=== PATIENT | male | born 1975 ===

== ENCOUNTER 2016-08-03 17:01 | Inpatient (IN) | payer MEDICAID ==
[~2016-08-03 17:01] MED LIST: Etomidate 20 mg/10ml Inj IV ONE
[2016-08-03] MEDS ORDERED: Rocuronium 10 mg/ml (5 ml) ONE ×2 (17:02→17:07)
--- NOTE | 2016-08-03 17:23 | ED PDOC ---
HPI: General Adult Time Seen by Provider: 08/03/16 17:15 Chief Complaint (Nursing): Seizure Chief Complaint (Provider): Unresponsive History Per: EMS History/Exam Limitations: clinical condition Onset/Duration Of Symptoms: Days (Today) Additional Complaint(s): EMS was called for unresponsive pt. Pt. was found to be combative and EMS gave ketamine IM. Pt. then transported to the ED. Pt. possibly with history of seizure and could of had a seizure. Unclear. Limited H and P as pt. not communicating and no family/friends at bedside. In ED, pt. found to be unresponsive with no gag. Pt. muscles mild contracted. Past Medical History Reviewed: Historical Data (history from previous visits), Nursing Documentation , Vital Signs Vital Signs: Last Vital Signs Temp 98.4 F 08/03/16 17:19 Pulse 80 08/03/16 18:12 Resp 14 08/03/16 18:12 BP 117/48 L 08/03/16 18:12 Pulse Ox 93 L 08/03/16 18:12 - Medical History PMH: HTN (not on meds), Chronic Kidney Disease Denies: Diabetes, Hepatitis, HIV, Seizures, Sexually Transmitted Disease - Family History Family History: States: Unknown Family Hx - Social History Alcohol: Other - Immunization History Hx Tetanus Toxoid Vaccination: No Hx Influenza Vaccination: Yes Hx Pneumococcal Vaccination: No - Home Medications Home Medications: Ambulatory Orders Medication Instructions Recorded No Known Home Med 06/11/16 - Allergies Allergies/Adverse Reactions: Allergies Allergy/AdvReac Type Severity Reaction Status Date / Time No Known Allergies Allergy Verified 08/03/16 17:16 Review of Systems Review Of Systems: ROS cannot be obtained secondary to pt's inabilty to answer questions. Physical Exam - Reviewed Nursing Documentation Reviewed: Yes Vital Signs Reviewed: Yes - Physical Exam Appears: Positive for: In Acute Distress Head Exam: Positive for: NORMOCEPHALIC Skin: Positive for: Normal Color, Warm, Diaphoresis (mild) Eye Exam: Positive for: PERRL (pinpoint b/l), Other (abrasion to nose; no septal hematoma; no gag present) Neck: Positive for: Trachea Midline Cardiovascular/Chest: Positive for: Tachycardia (sss) Respiratory: Positive for: Decreased Breath Sounds Gastrointestinal/Abdominal: Positive for: Soft. Negative for: Tenderness Back: Negative for: L CVA Tenderness, R CVA Tenderness Extremity: Negative for: Tenderness, Pedal Edema Neurologic/Psych: Positive for: Other (not responsive to commands; extremities muscles slowly relaxing during evaluation) - Laboratory Results Result Diagrams: 08/03/16 17:50 Interpretation Of Abn Labs: 13 wbc - ECG ECG: Positive for: Interpreted By Me, Viewed By Me ECG Rhythm: Positive for: Normal QRS, Normal ST Segment, Sinus Rhythm O2 Sat by Pulse Oximetry: 94 - Radiology X-Ray: Interpreted by Me, Viewed By Me X-Ray Interpretation: No Acute Disease, Other (tube 3cm above art) - CT Scan/US head ct Other Rad Studies (CT/US): Read By Radiologist Other Rad Interpretation: no acute - Progress ED Course And Treament: 1915: Stable. Intubated. Waking up more on vent, more meds given for sedation. Not septic. Likely seizure vs. drug use. Hx of drugs and etoh per previous visits. 1941: Stable. Spoke with Dr. Mendoza, will admit. Spoke with Aleexi, will admit. ICU. - Critical Care Total Time (In Min): 30 Documented Critical Care: Time excludes all time spent performint seperately billable procedures Procedures - Intubation Time of Intubation: 17:39 Intubation Method: orotracheal Tube Size (cm): 7.5 Breath Sounds after Intubation: equal Intubation Complications: no complications Post Intubation Xray: Yes (intact) Progress/Xray Impression: in place; glide scope used Disposition - Clinical Impression Clinical Impression: Unresponsive state - Patient ED Disposition Is Patient to be Admitted: Yes - Disposition Disposition Time: 19:43 Condition: SERIOUS - Pt Status Changed To: Hospital Disposition Of: Inpatient - Admit Certification Admit to Inpatient:: After my assessment, the patient will require hospitalization for at least two midnights. This is because of the severity of symptoms shown, intensity of services needed, and/or the medical risk in this patient being treated as an outpatient. - POA Present On Arrival: Falls Or Trauma
[2016-08-03 17:32] LABS: ABG ALLEN TEST YES; ABG MECHANICAL RATE 12; ARTERIAL BLOOD GAS HCO3 25.9 mmol/L (21-28); ARTERIAL BLOOD GAS MODE A/C; ARTERIAL BLOOD GAS PH 7.28 (7.35-7.45); ARTERIAL BLOOD GAS PO2 248 mm/Hg (80-100); ATERIAL BLOOD GAS PEEP 0
[2016-08-03] MEDS ORDERED: Etomidate 20 mg/10ml Inj IV ONE (17:35)
[2016-08-03] MEDS ORDERED: Propofol 10 mg/ml Inj (20 ML) IV ONE ×2 (17:36→18:02)
[2016-08-03] MEDS ORDERED: Sodium Chloride 0.9% 1,000 ML IV STA (18:02)
[2016-08-03 18:08] LABS: BASO # 0.1 K/uL (0.0-0.2); BASO % 0.7 % (0.0-2.0); EOS # 0.1 K/uL (0.0-0.7); HEMATOCRIT 49.9 % (35.0-51.0); LYMPH # 4.5 K/uL (1.0-4.3); LYMPH % 34.5 % (20.0-40.0); MEAN CELL VOLUME 90.5 fl (80.0-94.0); MEAN CORPUSCULAR HEMOGLOBIN 28.7 pg (27.0-31.0); MEAN CORPUSCULAR HGB CONC 31.7 g/dL (33.0-37.0); MEAN PLATELET VOLUME 10.4 fl (7.2-11.7); MONO # 0.7 K/uL (0.0-0.8); MONO % 5.4 % (0.0-10.0); NEUT # 7.6 K/uL (1.8-7.0); NEUT % 58.4 % (50.0-75.0); RED CELL DISTRIBUTION WIDTH 14.2 % (11.5-14.5)
[2016-08-03 18:24] LABS: ALB/GLOB RATIO 1.3 (1.0-2.1); ALCOHOL SERUM 122 mg/dl (0-10); ALKALINE PHOSPHATASE 66 U/L (38-126); ALT/SGPT 21 U/L (21-72); AST/SGOT 52 U/L (17-59); BILIRUBIN,TOTAL 0.8 mg/dl (0.2-1.3); BLOOD UREA NITROGEN 17 mg/dl (9-20); CALCIUM 8.7 mg/dL (8.4-10.2); CARBON DIOXIDE 23 mmol/L (22-30); CHLORIDE 107 mmol/L (98-107); GFR AFRICAN-AMERICAN > 60; GLUCOSE,RANDOM 102 mg/dL (75-110); POTASSIUM 4.1 MMOL/L (3.6-5.0); SODIUM 147 mmol/l (132-148); TOTAL PROTEIN 7.3 G/DL (6.3-8.2)
[2016-08-03 18:25] LABS: PARTIAL THROMBOPLASTIN TIME 28.8 SECONDS (23.3-32.5)
[2016-08-03 18:26] LABS: VALPROIC ACID < 10.0 ug/mL (50.0-100.0)
[2016-08-03] MEDS ORDERED: Midazolam 2 MG/2 ML VIAL IV ONE (18:29)
--- NOTE | 2016-08-03 19:19 | CT ---
EXAM: CT Head Without Intravenous Contrast CLINICAL HISTORY: 41 years old, male; Signs and symptoms; Other: Poss seizure; Additional info: Headache TECHNIQUE: Axial computed tomography images of the head/brain without intravenous contrast. This CT exam was performed using one or more of the following dose reduction techniques: automated exposure control, adjustment of the mA and/or kV according to patient size, and/or use of iterative reconstruction technique. Coronal and sagittal reformatted images were created and reviewed. EXAM DATE/TIME: 08/03/2016 5:17 PM COMPARISON: CT - HEAD W/O CONTRAST 04/03/2016 1:09:03 AM FINDINGS: Brain: Ventricles are normal in size and configuration. There is no midline shift. There are no intra-axial or extra-axial mass lesions or areas of hemorrhage. There are no abnormal fluid collections. العلي-white differentiation is maintained. Ventricles: See above. Bones/joints: Bones: Cranial vault is intact. Soft tissues: unremarkable Sinuses: There is mucoperiosteal thickening in the ethmoid air cells Mastoid air cells: Ears and mastoids: Middle ears and mastoids are unremarkable Orbits: Orbital contents are unremarkable. IMPRESSION: No acute intracranial abnormality; ethmoid sinus disease
--- NOTE | 2016-08-03 19:47 | CP.PCM.CON ---
History of Present Illness - History of Present Illness History of Present Illness: Attending: Ramirez Arreguin MD Reason for consult: Critical care Management Chief complaint: Unresponsiveness HPI: The Hx is obtained from the Medical records. This is a 41 years old male with multiple ED visits for Alcohol intoxication, has unsupported hx of HTN, not on medication, brought to the ED by EMS who were called because the patient was unresponsive. They found the patient combative and administered Ketamine. In the ED the patient was non responsive with no gag reflex, in acute distress and pin pointed pupils. He was intubated in the ED. No family member was present. PMH: HTN? PSH: None in past admissions SH: Former smoker; Alcohol abuse, No substance abuse in past records FH: No known family hx in past admissions Allergies: NKDA Review of Systems - Review of Systems Systems not reviewed;Unavailable: Respiratory Distress, Intoxicated Review of Systems: Review of system is limited because the patient is unresponsive. Past Patient History - Infectious Disease Hx of Infectious Diseases: None - Past Medical History & Family History Past Medical History?: Yes - Past Social History Smoking Status: Former Smoker Chewing Tobacco Use: No Cigar Use: No Alcohol: > 2 Drinks/Day Drugs: Opiates Home Situation {Lives}: With Family - CARDIAC Hx Hypertension: Yes (not on meds) - PULMONARY Hx Respiratory Disorders: No Hx Tuberculosis: No - NEUROLOGICAL Hx Neurological Disorder: No Hx Seizures: No - HEENT Hx HEENT Problems: No - RENAL Hx Chronic Kidney Disease: No - ENDOCRINE/METABOLIC Hx Endocrine Disorders: No - HEMATOLOGICAL/ONCOLOGICAL Hx Blood Disorders: No Hx Human Immunodeficiency Virus (HIV): No - INTEGUMENTARY Hx Dermatological Problems: No - MUSCULOSKELETAL/RHEUMATOLOGICAL Hx Musculoskeletal Disorders: No Hx Falls: No - GASTROINTESTINAL Hx Gastrointestinal Disorders: No - GENITOURINARY/GYNECOLOGICAL Hx Genitourinary Disorders: No Hx Sexually Transmitted Disorders: No - PSYCHIATRIC Hx Psychophysiologic Disorder: No Hx Substance Use: No - SURGICAL HISTORY Hx Surgeries: No - ANESTHESIA Hx Anesthesia: No Hx Anesthesia Reactions: No Hx Malignant Hyperthermia: No Meds Allergies/Adverse Reactions: Allergies Allergy/AdvReac Type Severity Reaction Status Date / Time No Known Allergies Allergy Verified 08/03/16 17:16 - Medications Medications: Current Medications Propofol (Diprivan) 100 mls @ 2.096 mls/hr IV .Q24H JASPREET; 5 MCG/KG/MIN PRN Reason: Protocol Stop: 08/04/16 17:46 Last Admin: 08/03/16 17:55 Dose: 2.096 mls/hr Midazolam HCl 50 mg/ Dextrose 100 mls @ 8 mls/hr IV .[id number] ONE; 4 MG/HR PRN Reason: Protocol Stop: 08/04/16 07:22 Physical Exam - Constitutional Additional comments: Orotrachial intubation - Head Exam Head Exam: NORMOCEPHALIC - Eye Exam Additional comments: Pupils pin pointed and fixed - ENT Exam ENT Exam: Normal Exam, Normal External Ear Exam, Normal Oropharynx Additional comments: Bruise to right nostril and right side of face. - Neck Exam Neck exam: Positive for: Full Rom, Normal Inspection. Negative for: Lymphadenopathy - Respiratory Exam Respiratory Exam: Clear to Auscultation Bilateral. absent: Rales, Rhonchi, Wheezes - Cardiovascular Exam Cardiovascular Exam: REGULAR RHYTHM, RRR, +S1, +S2. absent: Gallop, JVD - GI/Abdominal Exam GI & Abdominal Exam: Normal Bowel Sounds, Soft. absent: Mass, Organomegaly - Rectal Exam Rectal Exam: Deferred - Extremities Exam Extremities exam: Positive for: normal inspection. Negative for: pedal edema - Back Exam Back exam: NORMAL INSPECTION - Neurological Exam Additional comments: Sedated on Propofol, intubated, no facial droop. Pupils pinpointed , central, fixed, no reaction to light. - Skin Skin Exam: Dry, Normal Color, Warm Additional comments: Taboo at left neck and both upper extremities. Results - Vital Signs Recent Vital Signs: Last Vital Signs Temp 98.4 F 08/03/16 17:19 Pulse 89 08/03/16 19:11 Resp 19 08/03/16 19:11 BP 137/68 08/03/16 19:11 Pulse Ox 94 L 08/03/16 19:46 - Labs Result Diagrams: 08/03/16 17:50 08/03/16 17:50 Labs: Laboratory Results - last 24 hr 08/03/16 08/03/16 17:27 17:50 WBC 13.0 H RBC 5.51 Hgb 15.8 Hct 49.9 MCV 90.5 D MCH 28.7 MCHC 31.7 L RDW 14.2 Plt Count 205 MPV 10.4 Neut % (Auto) 58.4 Lymph % (Auto) 34.5 [place] % (Auto) 5.4 Eos % (Auto) 1.0 Baso % (Auto) 0.7 Neut # 7.6 H Lymph # 4.5 H [place] # 0.7 Eos # 0.1 Baso # 0.1 PT 10.5 INR 1.01 APTT 28.8 pCO2 63 H pO2 248 H HCO3 25.9 ABG pH 7.28 L ABG Total CO2 31.5 H ABG O2 Saturation 100.7 H ABG Base Excess 1.2 Denis Test Yes ABG Potassium 3.8 A-a O2 Difference 386.0 Sodium 141.0 147 Chloride 110.0 H 107 Glucose 108 Lactate 1.8 Vent Mode A/c Mechanical Rate 12 FiO2 100.0 Tidal Volume 500 PEEP 0 Potassium 4.1 Carbon Dioxide 23 Anion Gap 21 H BUN 17 Creatinine 1.1 Est GFR ( Amer) > 60 Est GFR (Non-Af Amer) > 60 Random Glucose 102 Calcium 8.7 Total Bilirubin 0.8 AST 52 ALT 21 D Alkaline Phosphatase 66 Ammonia 25 Troponin I < 0.0120 Total Protein 7.3 Albumin 4.1 Globulin 3.2 Albumin/Globulin Ratio 1.3 Arterial Blood Potassium 3.8 Salicylates < 1.0 Urine Opiates Screen Positive H Urine Methadone Screen Negative Acetaminophen < 10.0 L Ur Barbiturates Screen Negative Valproic Acid < 10.0 L Ur Phencyclidine Scrn Negative Ur Amphetamines Screen Negative U Benzodiazepines Scrn Negative U Oth Cocaine Metabols Negative U Cannabinoids Screen Negative Alcohol, Quantitative 122 H - EKG Data EKG comments: NSR 87/min - Imaging and Cardiology CT scan - head Status: Image reviewed by me, Report reviewed by me Additional comment: No acute intracraneal abnormality. Ethmoid Sinus disease Assessment & Plan - Assessment and Plan (Free Text) Assessment: #. Unresponsiveness #. Opioid Abuse #. Alcohol Intoxication #. Leukocytosis Plan: 41 years old male with multiple ED visits for Alcohol intoxication, brought to the ED by EMS who were called because the patient was unresponsive. They found patient combative and administered Ketamine. In the ED the patient was non responsive with no gag reflex, in acute distress and pin pointed pupils. He was intubated in the ED. No family member was present. #. Unresponsiveness probably secondary to Toxic encephalopathy r/o seizure - Admit to ICU - consult Neurosurgery Dr davis #. Hypercapneic respiratory failure with respiratory acidosis - Continue Mechanical ventilation Ac 12; TV 500; FiO2 505 - Propofol - follow ABG #. Opioid Abuse with probably intoxication - Titrate Medazolam down - No Narcan #. Alcohol Intoxication - IV fluid D5NS at 125ml/hr. Start a Banana bag with Thiamine/MV/ folic Acid after previous IV Fluid - Thiamine 100mg IM #. Reacticve Leukocytosis - follow CBC #. Stress ulcer Prophylaxis with Pepcid #. DVT prophylaxis with lovenox #. Code Status: Full - Date & Time Date: 08/03/16 Time: 19:47
[2016-08-03] MEDS: Midazolam HCl 50 MG in Dextrose 5% In Water 90 ML IV ONE (19:49)
[2016-08-03] MEDS ORDERED: Dextrose 5%/0.9% NS 1,000 ML IV SCH (20:15)
--- NOTE | 2016-08-03 20:32 | CP.PCM.HP ---
History of Present Illness - History of Present Illness History of Present Illness: pt brought in by BLS/ALS for unresponsive/seizure/?? OD, intubated in ER and sedated. ct head wnl and bw wnl except opioids in urine and wbc 13. this provider was w/ bls crew and assessed pt prior to sedation pt was agitated and had tonic sz in field. bystanders acknowledged cds history and ?? seizure hx. st on monitor. no other hx available. Present on Admission - Present on Admission Any Indicators Present on Admission: No Review of Systems - Review of Systems Systems not reviewed;Unavailable: Altered Mental Status, Intoxicated, Intubated Past Patient History - Infectious Disease Hx of Infectious Diseases: None - Past Medical History & Family History Past Medical History?: Yes - Past Social History Alcohol: Other - CARDIAC Hx Hypertension: Yes (not on meds) - PULMONARY Hx Tuberculosis: No - NEUROLOGICAL Hx Seizures: No - HEENT Hx HEENT Problems: No - RENAL Hx Chronic Kidney Disease: Yes - ENDOCRINE/METABOLIC Hx Endocrine Disorders: No - HEMATOLOGICAL/ONCOLOGICAL Hx Human Immunodeficiency Virus (HIV): No - INTEGUMENTARY Hx Dermatological Problems: No - MUSCULOSKELETAL/RHEUMATOLOGICAL Hx Musculoskeletal Disorders: No Hx Falls: No - GASTROINTESTINAL Hx Gastrointestinal Disorders: No - GENITOURINARY/GYNECOLOGICAL Hx Sexually Transmitted Disorders: No - PSYCHIATRIC Hx Psychophysiologic Disorder: No Hx Substance Use: No - SURGICAL HISTORY Hx Surgeries: No - ANESTHESIA Hx Anesthesia: No Hx Anesthesia Reactions: No Hx Malignant Hyperthermia: No Meds Allergies/Adverse Reactions: Allergies Allergy/AdvReac Type Severity Reaction Status Date / Time No Known Allergies Allergy Verified 08/03/16 17:16 Physical Exam - Constitutional Appears: Toxic, Agitated, Confused - Head Exam Head Exam: ATRAUMATIC, NORMAL INSPECTION, NORMOCEPHALIC - Eye Exam Eye Exam: EOMI, Normal appearance Additional comments: pinpoint, nonresponsive pupils. scleral erythema - ENT Exam ENT Exam: Mucous Membranes Moist, Normal Exam - Neck Exam Neck exam: Positive for: Normal Inspection - Respiratory Exam Respiratory Exam: Clear to Auscultation Bilateral, NORMAL BREATHING PATTERN - Cardiovascular Exam Cardiovascular Exam: Tachycardia, REGULAR RHYTHM, RRR, +S1, +S2 - GI/Abdominal Exam GI & Abdominal Exam: Normal Bowel Sounds, Soft. absent: Tenderness - Extremities Exam Extremities exam: Positive for: full ROM, normal capillary refill, normal inspection, pedal pulses present - Back Exam Back exam: NORMAL INSPECTION - Neurological Exam Neurological exam: Altered Additional comments: contracted musculature - Psychiatric Exam Psychiatric exam: Agitated - Skin Skin Exam: Dry, Intact, Normal Color, Warm Results - Vital Signs Recent Vital Signs: Last Vital Signs Temp 98.4 F 08/03/16 17:19 Pulse 89 08/03/16 19:11 Resp 19 08/03/16 19:11 BP 137/68 08/03/16 19:11 Pulse Ox 94 L 08/03/16 19:46 - Labs Result Diagrams: 08/03/16 17:50 08/03/16 17:50 Assessment & Plan (1) Unresponsive state Assessment and Plan: ?? r/t opioid abuse vs sz vs unkn etiology icu neuro intubated for airway protection propofol gtt Status: Acute (2) DVT prophylaxis Assessment and Plan: scd nad ae hose lovenox Status: Acute Decision To Admit - Pt Status Changed To: Hospital Disposition Of: Inpatient - Admit Certification Admit to Inpatient:: After my assessment, the patient will require hospitalization for at least two midnights. This is because of the severity of symptoms shown, intensity of services needed, and/or the medical risk in this patient being treated as an outpatient. - . Bed Request Type: Intensive Care Admitting Physician: Ramirez Arreguin
[2016-08-03 22:39] VITALS: BMI 33.3
[2016-08-03] MEDS ORDERED: Thiamine 100 mg/ml Inj IM ONE (23:01)
[2016-08-04] MEDS: Dextrose 5%/0.9% NS 1,000 ML IV SCH ×4 (00:06→17:12)
[2016-08-04] MEDS: Midazolam HCl 50 MG in Dextrose 5% In Water 90 ML IV ONE (02:21)
[2016-08-04 04:53] LABS: BASO % 0.6 % (0.0-2.0); EOS # 0.1 K/uL (0.0-0.7); EOS % 0.9 % (0.0-4.0); HEMATOCRIT 39.7 % (35.0-51.0); LYMPH # 0.9 K/uL (1.0-4.3); LYMPH % 12.1 % (20.0-40.0); MEAN CELL VOLUME 88.3 fl (80.0-94.0); MEAN CORPUSCULAR HEMOGLOBIN 28.5 pg (27.0-31.0); MEAN CORPUSCULAR HGB CONC 32.3 g/dL (33.0-37.0); MEAN PLATELET VOLUME 9.8 fl (7.2-11.7); MONO # 0.4 K/uL (0.0-0.8); MONO % 5.6 % (0.0-10.0); NEUT % 80.8 % (50.0-75.0); RED CELL DISTRIBUTION WIDTH 13.9 % (11.5-14.5); WHITE BLOOD COUNT 7.4 K/uL (4.8-10.8)
[2016-08-04 05:15] LABS: ALCOHOL SERUM < 10 mg/dl (0-10); BLOOD UREA NITROGEN 15 mg/dl (9-20); CALCIUM 7.7 mg/dL (8.4-10.2); CARBON DIOXIDE 29 mmol/L (22-30); CHLORIDE 110 mmol/L (98-107); GFR AFRICAN-AMERICAN > 60; GLUCOSE,RANDOM 98 mg/dL (75-110); POTASSIUM 3.9 MMOL/L (3.6-5.0); SODIUM 145 mmol/l (132-148)
[2016-08-04 05:29] LABS: ABG ALLEN TEST YES; ARTERIAL BLOOD GAS HCO3 28.6 mmol/L (21-28); ARTERIAL BLOOD GAS PH 7.41 (7.35-7.45); ARTERIAL BLOOD GAS PO2 89 mm/Hg (80-100)
[2016-08-04 05:30] LABS: ARTERIAL BLOOD GAS O2 CAPACITY 17.4 mL/dL (16-24)
[2016-08-04 05:31] LABS: ARTERIAL BLOOD GAS MODE ac; ATERIAL BLOOD GAS PEEP 10; CARBOXYHEMOGLOBIN 1.5 % (0.5-1.5); HHB 1.5 % (0.0-5.0); METHEMOGLOBIN 0.9 % (0.0-3.0)
[2016-08-04 05:32] LABS: ABG MECHANICAL RATE 12
--- NOTE | 2016-08-04 07:28 | CP.PCM.PN ---
Subjective - Date & Time of Evaluation Date of Evaluation: 08/04/16 Time of Evaluation: 07:28 - Subjective Subjective: pt seen in icu. nodistress. sedated w/ versed/propofol. vent settings noted. case d/c w/ alexander welch and minnie. eeg , pulm consult pending zosyn for asp pna. bw noted. condition guarded Objective - Vital Signs/Intake and Output Vital Signs (last 24 hours): Temp Pulse Resp BP Pulse Ox 99.7 F H 75 18 138/62 100 08/04/16 04:00 08/04/16 06:00 08/04/16 06:00 08/04/16 06:00 08/04/16 06:00 Intake and Output: 08/04/16 08/04/16 06:59 18:59 Intake Total 1674 Output Total 550 Balance 1124 - Medications Medications: Current Medications Acetaminophen (Tylenol 650 Mg Supp) 650 mg AR Q6 PRN PRN Reason: Fever >100.4 F Enoxaparin Sodium (Lovenox) 40 mg SC DAILY JASPREET PRN Reason: Protocol Famotidine (Pepcid) 20 mg IVP Q12 JASPREET Propofol (Diprivan) 100 mls @ 2.096 mls/hr IV .Q24H JASPREET; 5 MCG/KG/MIN PRN Reason: Protocol Stop: 08/04/16 17:46 Last Admin: 08/04/16 05:03 Dose: 20.956 mls/hr Dextrose/Sodium Chloride (Dextrose 5%/0.9% Ns 1000 Ml) 1,000 mls @ 175 mls/hr IV .Q5H43M JASPREET Last Admin: 08/04/16 05:03 Dose: 175 mls/hr Ondansetron HCl (Zofran Inj) 4 mg IVP Q4 PRN PRN Reason: Nausea/Vomiting - Labs Labs: 08/04/16 04:30 08/04/16 04:30 PT 10.5 SECONDS (9.6-11.2) 08/03/16 17:50 INR 1.01 (0.92-1.08) 08/03/16 17:50 APTT 28.8 SECONDS (23.3-32.5) 08/03/16 17:50 - Constitutional Appears: Non-toxic - Head Exam Head Exam: ATRAUMATIC, NORMAL INSPECTION, NORMOCEPHALIC Additional comments: intubated - Eye Exam Eye Exam: EOMI, Normal appearance, PERRL Pupil Exam: NORMAL ACCOMODATION, PERRL - ENT Exam ENT Exam: Mucous Membranes Moist, Normal Exam - Neck Exam Neck Exam: Full ROM, Normal Inspection. absent: Lymphadenopathy - Respiratory Exam Respiratory Exam: Clear to Ausculation Bilateral, NORMAL BREATHING PATTERN Additional comments: vented, intubated - Cardiovascular Exam Cardiovascular Exam: REGULAR RHYTHM, RRR, +S1, +S2. absent: Murmur - GI/Abdominal Exam GI & Abdominal Exam: Soft, Normal Bowel Sounds. absent: Tenderness - Rectal Exam Rectal Exam: NORMAL INSPECTION - Extremities Exam Extremities Exam: Full ROM, Normal Capillary Refill, Normal Inspection. absent : Joint Swelling, Pedal Edema - Back Exam Back Exam: NORMAL INSPECTION - Neurological Exam Additional comments: sedated, intubated, vent settings noted - Psychiatric Exam Psychiatric exam: Normal Affect, Normal Mood - Skin Skin Exam: Dry, Intact, Normal Color, Warm Assessment and Plan (1) Unresponsive state Status: Acute (2) DVT prophylaxis Status: Acute (3) Aspiration pneumonia Status: Acute - Assessment and Plan (Free Text) Assessment: (1) Unresponsive state Assessment and Plan: ?? r/t opioid abuse vs sz vs unkn etiology icu neuro intubated for airway protection propofol gtt eeg Status: Acute (2) DVT prophylaxis Assessment and Plan: scd nad ae hose lovenox Status: Acute 3-aspiration pna-zosyn, pulm-riggins
[2016-08-04] MEDS: Enoxaparin 40 mg Syringe SC SCH (09:03)
[2016-08-04] MEDS: Piperacillin/Tazobact 3.375 GM in Sodium Chloride 0.9% 100 ML IVPB SCH ×4 (09:05→21:12)
[2016-08-04] MEDS ORDERED: Sodium Chloride 3% for Inhalation 4 ML VIAL.NEB IH PRN (09:19)
[2016-08-04] MEDS ORDERED: Albuterol-Ipratrop 3 mg / 0.5 (3 ml) UD INH PRN (09:20)
--- NOTE | 2016-08-04 09:33 | CON ---
DATE: 08/04/2016 The patient is a 41-year-old male who was referred for pulmonary evaluation following endotracheal in tubation and ventilation after he was found unresponsive. He is unable to give any history, still he avily sedated on propofol. PAST MEDICAL HISTORY: Hypertension and chronic drug use and alcohol use. His toxicology report is positive for drugs and alcohol. PHYSICAL EXAMINATION: GENERAL: The patient is heavily sedated, does not respond to painful stimuli. HEENT: Pupils are slightly reactive to light and accommodation. Mouth: ET tube is in place. LUNGS: Bilateral coarse scattered rales with dullness at both bases. HEART: Tachycardic. ABDOMEN: Unremarkable. EXTREMITIES: Show no edema or cyanosis. CENTRAL NERVOUS SYSTEM: One is unable to evaluate. LABORATORY DATA: Remarkable for WBC of 7.4, hemoglobin 12.8, platelet count of ____,000. PT 10.5, I NR 1.0. Sodium 145, potassium 3.9, BUN 15, creatinine 0.8. Toxicology screen is positive for opiate s. Alcohol level 122. Chest x-ray official report pending, but reviewed by me, is remarkable for bl unting of right costophrenic angle and retrocardiac infiltrate. ET tube in fair position. IMPRESSION: Unresponsiveness, probably secondary to drug and alcohol overdose with metabolic encepha lopathy, acute hypercapnic respiratory failure. One has to rule out superimposed pneumonia, probably secondary to aspiration. 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 Will obtain sputum for Gram stain and cult ures and septic workup. Attempt to extubate once clinically stable. Artem Kerns MD cc: [id number] TT: 08/04/2016 09:32:21 Confirmation # [id number] Dictation # [id number] en
[2016-08-04] MEDS ORDERED: Piperacillin/Tazobact 3.375 GM in Sodium Chloride 0.9% 100 ML IVPB SCH (10:00)
--- NOTE | 2016-08-04 11:48 | RAD ---
HISTORY: Chest x-ray 08/04/2016 at 0435 hours History: Follow up ett placement COMPARISON: Comparison chest dated 08/03/2016 at 1805 hours. FINDINGS: LUNGS: In situ ETT, tip of which lies approximately 7.2 cm above art. Right basilar opacity may represent some combination of atelectasis and or infiltrate with small right-sided effusion. PLEURA: No apparent pneumothorax. CARDIOVASCULAR: Heart size is upper limits of normal. OSSEOUS STRUCTURES: No significant abnormalities. VISUALIZED UPPER ABDOMEN: Normal. OTHER FINDINGS: None. IMPRESSION: ETT as above. Right lower lobe opacity may represent some combination of atelectasis and or infiltrate and small right-sided effusion.
--- NOTE | 2016-08-04 11:51 | RAD ---
HISTORY: Chest x-ray 08/03/2016 at 1805 hours History: Dyspnea COMPARISON: Comparison made with chest radiograph 01/09/2016 FINDINGS: LUNGS: In situ ETT, tip of which lies approximately 8.65 cm above art. Right lower lobe opacity may represent some combination of atelectasis and or infiltrate with small right-sided effusion suspect minor left basilar atelectasis PLEURA: No pneumothorax apparent. CARDIOVASCULAR: Normal. OSSEOUS STRUCTURES: No significant abnormalities. VISUALIZED UPPER ABDOMEN: Normal. OTHER FINDINGS: None. IMPRESSION: In situ ETT, tip of which lies approximately 8.65 cm above art. Right lower lobe opacity may represent some combination of atelectasis and or infiltrate with small right-sided effusion suspect minor left basilar atelectasis
[2016-08-04] MEDS ORDERED: Midazolam 50 MG in Dextrose 5% In Water 50 ML IV ONE ×2 (12:22→21:16)
--- NOTE | 2016-08-04 12:27 | RAD ---
PROCEDURE: CHEST RADIOGRAPH, 1 VIEW 08/04/2016 at 0946 hours HISTORY: RESPIRATORY FAILURE COMPARISON: Comparison made with prior radiographs chest 08/04/2016 at 0435 hours FINDINGS: LUNGS: ETT tip lies approximately 4.6 cm above art. Re- demonstrated is vague opacity in the right lung base which appears less dense likely representing improved atelectasis. Questionable small right-sided effusion. Suspect minor left basilar atelectasis PLEURA: No apparent pneumothorax. CARDIOVASCULAR: Cardiomegaly. OSSEOUS STRUCTURES: No significant abnormalities. VISUALIZED UPPER ABDOMEN: Normal. OTHER FINDINGS: None. IMPRESSION: In situ ETT as above. Re- demonstrated is vague opacity in the right lung base which appears less dense likely representing improved atelectasis. Questionable small right-sided effusion. Suspect minor left basilar atelectasis. . .
[2016-08-04] MEDS ORDERED: MIDAZOLAM IV ONE ×3 (12:30→22:00)
[2016-08-04] MEDS ORDERED: DEXTROSE 5% IV ONE ×3 (12:30→22:00)
[2016-08-04] MEDS ORDERED: WATER IV ONE ×3 (12:30→22:00)
--- NOTE | 2016-08-04 15:35 | CON ---
DATE: 08/04/2016 CHIEF COMPLAINT: Unresponsiveness seizure. HISTORY OF PRESENT ILLNESS: This is a 41-year-old man with history of hypertension, chronic kidney d isease. History was obtained from medical records. The patient was unresponsive, was called by the EMS being unresponsive. Apparently, they found him combative. The patient was transferred to the Emergency Room, given Narcan and was getting agitated and bizarre. He had questionable shaking movements of his extremities and muscle contracted. Currently, he is on propofol and Versed, but is moving with localizing to painful stimulus. The patient is getting Ativan 2 mg IV q. 4 hours and is on propofol. His U-tox is positive for opiates as well as alcohol 122. At this time, his CT head s howed no acute intracranial abnormality. PAST MEDICAL HISTORY: Hypertension, chronic kidney disease. SOCIAL HISTORY: History of alcohol use. Unsure whether he has illicit drug use or not and a smoker. REVIEW OF SYSTEMS: A 14-point review of systems difficult to obtain due to the patient is altered. ALLERGIES: No known drug allergies. FAMILY HISTORY: Noncontributory. MEDICATIONS: Reviewed medication reconciliation sheet. ALLERGIES: No known drug allergies. PHYSICAL EXAMINATION: VITAL SIGNS: Temperature 98.6, pulse rate 77, blood pressure 127/62, respiratory rate of 18, oxygen 50% FiO2 via mechanical ventilation. GENERAL: The patient is sitting up in bed, intubated, in no acute distress. HEENT: Atraumatic, normocephalic. PERRLA. Extraocular muscles intact. NECK: Supple, no JVD, no adenopathy noted. LUNGS: Clear to auscultation. No adventitious sounds. HEART: S1, S2, normal rate and rhythm. No murmurs, rubs, or gallops. ABDOMEN: Soft, nontender, nondistended. Bowel sounds are present. EXTREMITIES: No clubbing, no cyanosis. Peripheral pulses 2+ . No clubbing, cyanosis. Periphe ral pulses 2+ bilaterally. NEUROLOGIC: The patient is intubated and on sedation, but withdraws and moves spontaneously all extr emities despite being on sedation. Cranial nerves II-XII are intact. Doll's eyes are present. Gag reflex is present. MOTOR: Spontaneous movement in all upper extremities. Normal tone. SENSORY: Withdraws to localized noxious stimulus. DTRs 2+ throughout. GAIT: Deferred for now. U-tox positive for opiates. LABORATORY DATA: Alcohol . Sodium is 145, potassium 3.9, chloride 110, carbon dioxide 29, BUN of 15, creatinine 0.8. Random glucose of 98. ASSESSMENT AND PLAN: This is a 41-year-old man with history of hypertension, alcohol abuse and chron ic kidney disease who presented with unresponsiveness and combative. There is questionable jerking m ovements and tightening of the extremities, evaluate for seizure. At this time, he is unresponsive s econdary to opiate abuse versus questionable likely cause and ETOH abuse causing break-through provok ed seizure. At this time, recommend continue propofol and Ativan p.r.n. and CIWA protocol. Also, we will just give him IV Keppra 500 q. 12, which can be discontinued prior to his discharge. Will get an EEG to evaluate for any seizure-like activity. At this time, continue with current present manage ment and gastrointestinal and deep venous thrombosis prophylaxis. No further neurological review at this time. Thank you for this consult. Jeffrey Narayan MD cc: [id number] TT: 08/04/2016 15:33:51 Confirmation # [id number] Dictation # [id number] joann
--- NOTE | 2016-08-04 16:30 | CARD ---
APPROVED REPORT EKG Measurement Heart [id number] <Conclusion> Normal sinus rhythm Normal ECG
[2016-08-04] MEDS: levETIRAcetam 500 MG in Sodium Chloride 0.9% 100 ML IVPB SCH (20:02)
[2016-08-04] MEDS: Midazolam 5 MG/ML 50 MG in Dextrose 5% In Water 90 ML IV ONE (21:53)
[2016-08-05] MEDS: Dextrose 5%/0.9% NS 1,000 ML IV SCH ×3 (01:13→10:55)
[2016-08-05] MEDS: Piperacillin/Tazobact 3.375 GM in Sodium Chloride 0.9% 100 ML IVPB SCH ×4 (03:22→21:08)
[2016-08-05 05:15] LABS: HEMATOCRIT 39.6 % (35.0-51.0); MEAN CELL VOLUME 89.5 fl (80.0-94.0); MEAN CORPUSCULAR HEMOGLOBIN 29.1 pg (27.0-31.0); MEAN CORPUSCULAR HGB CONC 32.5 g/dL (33.0-37.0); RED CELL DISTRIBUTION WIDTH 14.2 % (11.5-14.5); WHITE BLOOD COUNT 10.7 K/uL (4.8-10.8)
[2016-08-05] MEDS: Midazolam 5 MG/ML 50 MG in Dextrose 5% In Water 90 ML IV ONE (05:47)
[2016-08-05 06:23] LABS: ALKALINE PHOSPHATASE 58 U/L (38-126); ALT/SGPT 13 U/L (21-72); AST/SGOT 57 U/L (17-59); BILIRUBIN,TOTAL 1.3 mg/dl (0.2-1.3); BLOOD UREA NITROGEN 11 mg/dl (9-20); CALCIUM 7.9 mg/dL (8.4-10.2); CARBON DIOXIDE 24 mmol/L (22-30); CHLORIDE 109 mmol/L (98-107); GFR AFRICAN-AMERICAN > 60; GLUCOSE,RANDOM 99 mg/dL (75-110); POTASSIUM 3.5 MMOL/L (3.6-5.0); SODIUM 143 mmol/l (132-148); TOTAL PROTEIN 5.6 G/DL (6.3-8.2)
--- NOTE | 2016-08-05 06:26 | PN ---
DATE: 08/03/2016 The patient in ICU, bed 422. The patient is seen and evaluated at the bedside. Events since admission reviewed. Discussed with overnight hospitalist. A 41-year-old male with multiple ED visits for alcohol intoxication, substance abuse, history of hypertension, noncompliant with medications. Admitted through ER after found unresponsive. The patient became combative after given ketamine. Intubated in ER, has no gag reflex and in respiratory distress with pinpoint pupils. Sedated on Diprivan and Versed drip. On discontinuation of Versed drip, patient was noted to be agitated, in distress with copious pink frothy secretions in the endotracheal tube. Treated with Lasix 20 mg x 1, sedated with Ativan and reinitiated Versed drip. The patient continued to have generalized shaking, suspected seizure. PAST MEDICAL, SURGICAL, SOCIAL HISTORY: Reviewed. ALLERGIES: None documented. PHYSICAL EXAMINATION: GENERAL: A well-built male, orally intubated, on AC/PRVC rate 12, tidal volume of 500, FiO2 50%, PEEP 5, observed rate 16, exhaled tidal volume 440, minute ventilation 7.7 liters, peak airway pressure 17, end tidal CO2 43. VITAL SIGNS: Temperature 98.6, heart rate 75, regular, blood pressure 133/81. Intake 1674, output 550, positive 1124. Weight 200 pounds. HEENT: Pupils are 2-3 mm, reactive. NECK: Supple. Endotracheal tube in place. Boon frothy secretions positive. HEART: Rhythm regular. S1, S2 normal. ABDOMEN: Bowel sounds present, soft. EXTREMITIES: No clubbing, cyanosis, edema. NEUROLOGIC: Sedated on propofol and Versed drip. No facial droop. LABORATORY DATA: Urine drug screen positive for opiates. Acetaminophen less than 10. Valproic acid less than 10. Alcohol level 122. WBC 7.4, hemoglobin 12.8, hematocrit 39.7, platelet count 110, neutrophils 80.8, lymphocytes 12.1. PT 10.5, INR 1.01, PTT 28.8. ABG: pH 7.41, pCO2 48, pO2 89, saturation 98.5%, AC 12, tidal volume 500, FiO2 50, PEEP 10. SMA-7: Sodium _, potassium 3.9, chloride 110, CO2 29, blood urea nitrogen 15, creatinine 0.8, calcium 7.7, total CK . Chest x-ray: Endotracheal tube in place, vague opacity in the right lung base representing improved atelectasis, small right pleural effusion , suspect left basilar atelectasis. IMPRESSION: Ventilator-dependent respiratory failure with hypoxemia. Currently on assist control 12, 500, 50% with a positive end-expiratory pressure 0. Continue vent support. Continue Diprivan and Versed to facilitate mechanical ventilation and to reduce agitation and to control seizure. Substance abuse with alcohol and probably opiates, unknown other substances. Possible seizure noted in the morning, awaiting EEG, will empirically start on Keppra 500 IV q. 12 hours. Continue gastrointestinal and deep venous thrombosis prophylaxis. Aspiration pneumonia involving both lower lobes, more on the right than the left, on Zosyn 3.375 grams IV q. 6 hours. Keep head of bed 40 degrees up. Will Willson MD cc: [id number] TT: 08/04/2016 15:40:58 Confirmation # [id number] Dictation # [id number] en MTDD
[2016-08-05 06:30] LABS: ABG ALLEN TEST YES; ABG MECHANICAL RATE 12; ARTERIAL BLOOD GAS HCO3 26.9 mmol/L (21-28); ARTERIAL BLOOD GAS MODE A/C; ARTERIAL BLOOD GAS O2 CAPACITY 17.9 mL/dL (16-24); ARTERIAL BLOOD GAS O2 CONTENT 17.9 ML/dL (15-23); ARTERIAL BLOOD GAS PH 7.43 (7.35-7.45); ARTERIAL BLOOD GAS PO2 102 mm/Hg (80-100); ARTERIAL BLOOD HGB O2 SAT 95.2 % (95.0-98.0); CARBOXYHEMOGLOBIN 2.7 % (0.5-1.5); HHB 0.2 % (0.0-5.0); METHEMOGLOBIN 1.9 % (0.0-3.0)
--- NOTE | 2016-08-05 07:08 | CP.PCM.PN ---
Subjective - Date & Time of Evaluation Date of Evaluation: 08/05/16 Time of Evaluation: 07:08 - Subjective Subjective: pt still sedated and vented. vent settings noted. had pink frothy sputum. no f/ c, n/v/d. bw noted, cxr noted, consults noted started on keppra for provoked sz Objective - Vital Signs/Intake and Output Vital Signs (last 24 hours): Temp Pulse Resp BP Pulse Ox 99.2 F 71 21 127/64 99 08/05/16 04:00 08/05/16 06:00 08/05/16 06:00 08/05/16 06:00 08/05/16 06:00 Intake and Output: 08/05/16 08/05/16 06:59 18:59 Intake Total 2139 Output Total 850 Balance 1289 - Medications Medications: Current Medications Acetaminophen (Tylenol 650 Mg Supp) 650 mg LA Q6 PRN PRN Reason: Fever >100.4 F Last Admin: 08/04/16 20:24 Dose: 650 mg Albuterol/Ipratropium (Duoneb 3 Mg/0.5 Mg (3 Ml) Ud) 3 ml INH RQ6 PRN PRN Reason: Shortness of Breath Enoxaparin Sodium (Lovenox) 40 mg SC DAILY [facility] PRN Reason: Protocol Last Admin: 08/04/16 09:03 Dose: 40 mg Famotidine (Pepcid) 20 mg IVP Q12 [facility] Last Admin: 08/04/16 20:57 Dose: 20 mg Dextrose/Sodium Chloride (Dextrose 5%/0.9% Ns 1000 Ml) 1,000 mls @ 175 mls/hr IV .Q5H43M [facility] Last Admin: 08/05/16 01:13 Dose: 175 mls/hr Piperacillin Sod/Tazobactam (Sod 3.375 gm/ Sodium Chloride) 100 mls @ 100 mls/ hr IVPB Q6 [facility] Last Admin: 08/05/16 03:22 Dose: 100 mls/hr Propofol (Diprivan) 100 mls @ 2.722 mls/hr IV .Q24H [facility]; 5 MCG/KG/MIN PRN Reason: Protocol Stop: 08/05/16 12:16 Last Titration: 08/05/16 03:15 Dose: 20 mcg/kg/min Levetiracetam 500 mg/ Sodium (Chloride) 105 mls @ 210 mls/hr IVPB Q12 [facility] Last Admin: 08/04/16 20:02 Dose: 210 mls/hr Lorazepam (Ativan) 2 mg IVP Q4 PRN PRN Reason: Agitation Last Admin: 08/04/16 20:06 Dose: 2 mg Ondansetron HCl (Zofran Inj) 4 mg IVP Q4 PRN PRN Reason: Nausea/Vomiting - Labs Labs: 08/05/16 04:45 08/05/16 04:45 PT 10.5 SECONDS (9.6-11.2) 08/03/16 17:50 INR 1.01 (0.92-1.08) 08/03/16 17:50 APTT 28.8 SECONDS (23.3-32.5) 08/03/16 17:50 - Constitutional Appears: Well, Non-toxic, No Acute Distress - Head Exam Head Exam: ATRAUMATIC, NORMAL INSPECTION, NORMOCEPHALIC - Eye Exam Eye Exam: EOMI, Normal appearance, PERRL Pupil Exam: NORMAL ACCOMODATION, PERRL - ENT Exam ENT Exam: Mucous Membranes Moist, Normal Exam - Neck Exam Neck Exam: Full ROM, Normal Inspection. absent: Lymphadenopathy - Respiratory Exam Respiratory Exam: Clear to Ausculation Bilateral, NORMAL BREATHING PATTERN - Cardiovascular Exam Cardiovascular Exam: REGULAR RHYTHM, RRR, +S1, +S2. absent: Murmur - GI/Abdominal Exam GI & Abdominal Exam: Soft, Normal Bowel Sounds. absent: Tenderness - Extremities Exam Extremities Exam: Full ROM, Normal Capillary Refill, Normal Inspection. absent : Joint Swelling, Pedal Edema - Back Exam Back Exam: NORMAL INSPECTION - Neurological Exam Neurological Exam: Alert, Awake, CN II-XII Intact, Normal Gait, Oriented x3 - Psychiatric Exam Psychiatric exam: Normal Affect, Normal Mood - Skin Skin Exam: Dry, Intact, Normal Color, Warm Assessment and Plan (1) Unresponsive state Status: Acute (2) DVT prophylaxis Status: Acute (3) Aspiration pneumonia Status: Acute - Assessment and Plan (Free Text) Assessment: (1) Unresponsive state Assessment and Plan: ?? r/t opioid abuse vs sz vs unkn etiology icu neuro intubated for airway protection propofol gtt eeg-pending results keppra neuro consult appriciated Status: Acute (2) DVT prophylaxis Assessment and Plan: scd nad ae hose lovenox Status: Acute 3-aspiration pna-ruthien, pulm-gilson
--- NOTE | 2016-08-05 08:03 | CP.PCM.PN ---
Subjective - Date & Time of Evaluation Date of Evaluation: 08/05/16 Time of Evaluation: 08:05 - Subjective Subjective: STILL SEDATED AND BEING VENTILATED VSS Objective - Vital Signs/Intake and Output Vital Signs (last 24 hours): Temp Pulse Resp BP Pulse Ox 99.2 F 65 21 118/60 99 08/05/16 04:00 08/05/16 07:00 08/05/16 07:00 08/05/16 07:00 08/05/16 07:00 Intake and Output: 08/05/16 08/05/16 06:59 18:59 Intake Total 2139 Output Total 850 Balance 1289 - Medications Medications: Current Medications Acetaminophen (Tylenol 650 Mg Supp) 650 mg [place] Q6 PRN PRN Reason: Fever >100.4 F Last Admin: 08/04/16 20:24 Dose: 650 mg Albuterol/Ipratropium (Duoneb 3 Mg/0.5 Mg (3 Ml) Ud) 3 ml INH RQ6 PRN PRN Reason: Shortness of Breath Enoxaparin Sodium (Lovenox) 40 mg SC DAILY [facility] PRN Reason: Protocol Last Admin: 08/04/16 09:03 Dose: 40 mg Famotidine (Pepcid) 20 mg IVP Q12 [facility] Last Admin: 08/04/16 20:57 Dose: 20 mg Dextrose/Sodium Chloride (Dextrose 5%/0.9% Ns 1000 Ml) 1,000 mls @ 175 mls/hr IV .Q5H43M [facility] Last Admin: 08/05/16 01:13 Dose: 175 mls/hr Piperacillin Sod/Tazobactam (Sod 3.375 gm/ Sodium Chloride) 100 mls @ 100 mls/ hr IVPB Q6 [facility] Last Admin: 08/05/16 03:22 Dose: 100 mls/hr Propofol (Diprivan) 100 mls @ 2.722 mls/hr IV .Q24H [facility]; 5 MCG/KG/MIN PRN Reason: Protocol Stop: 08/05/16 12:16 Last Titration: 08/05/16 03:15 Dose: 20 mcg/kg/min Levetiracetam 500 mg/ Sodium (Chloride) 105 mls @ 210 mls/hr IVPB Q12 [facility] Last Admin: 08/04/16 20:02 Dose: 210 mls/hr Potassium Chloride (Potassium Cl 10meq/50ml Sterile Water) 50 mls @ 50 mls/hr IVPB Q1 [facility] Stop: 08/05/16 09:59 Lorazepam (Ativan) 2 mg IVP Q4 PRN PRN Reason: Agitation Last Admin: 08/04/16 20:06 Dose: 2 mg Ondansetron HCl (Zofran Inj) 4 mg IVP Q4 PRN PRN Reason: Nausea/Vomiting - Labs Labs: 08/05/16 04:45 08/05/16 04:45 PT 10.5 SECONDS (9.6-11.2) 08/03/16 17:50 INR 1.01 (0.92-1.08) 08/03/16 17:50 APTT 28.8 SECONDS (23.3-32.5) 08/03/16 17:50 - Constitutional Appears: Well - Head Exam Head Exam: ATRAUMATIC, NORMAL INSPECTION, NORMOCEPHALIC - Eye Exam Eye Exam: EOMI, Normal appearance, PERRL Pupil Exam: NORMAL ACCOMODATION, PERRL - ENT Exam ENT Exam: Mucous Membranes Moist, Normal Exam Additional comments: ETT IN GOOD POSITION - Neck Exam Neck Exam: Full ROM, Normal Inspection. absent: Lymphadenopathy - Respiratory Exam Respiratory Exam: Rales - Cardiovascular Exam Cardiovascular Exam: REGULAR RHYTHM, +S1, +S2. absent: Murmur - GI/Abdominal Exam GI & Abdominal Exam: Soft, Normal Bowel Sounds. absent: Tenderness - Rectal Exam Rectal Exam: NORMAL INSPECTION - Extremities Exam Extremities Exam: Full ROM, Normal Capillary Refill, Normal Inspection. absent : Joint Swelling, Pedal Edema - Back Exam Back Exam: NORMAL INSPECTION - Skin Skin Exam: Dry, Intact, Normal Color, Warm Assessment and Plan - Assessment and Plan (Free Text) Assessment: ACUTE RESP FAILURE Plan: BEGIN ATTEMPTS TO EXTUBATE
[2016-08-05] MEDS: Enoxaparin 40 mg Syringe SC SCH (08:22)
[2016-08-05] MEDS: levETIRAcetam 500 MG in Sodium Chloride 0.9% 100 ML IVPB SCH ×2 (08:22→20:27)
[2016-08-05] MEDS: Potassium CL 10 MEQ/50 ML 50 ML IVPB SCH ×2 (08:30→10:58)
--- NOTE | 2016-08-05 10:11 | PN ---
DATE: 08/05/2016 The patient in ICU, bed 422. TIME SPENT: 35 minutes. The patient is seen and evaluated at the bedside. Events since admission reviewed. Case was discuss ed in the a.m. rounds. A 41-year-old male with multiple ED visits for alcohol intoxication, substanc e abuse, history of hypertension, noncompliant with medications. Admitted after being found unrespon sive. The patient was noted to be agitated on reducing sedation. Remains sedated on Diprivan and Ve rsed drip. Also requiring intermittent Ativan injection. Suspected generalized tonic-clonic seizure noted yesterday. Also noted to have pink frothy sputum filling the endotracheal tube. This morning , alert, awake, remains comfortable on the ventilator. Diprivan being weaned off, so is the Versed d rip. PHYSICAL EXAMINATION: VITAL SIGNS: Temperature 98.6, heart rate 65-82, regular, respiratory rate 14, blood pressure 125/60 , end tidal CO2 36. Intake/output 2139, output 3850, negative balance 1711, weight 200 pounds. HEENT: Pupils reactive. Conjunctivae pink. Sclerae white. Endotracheal tube in place. Minimal se cretions noted. HEART: Rhythm regular. S1, S2 normal intensity. No S3, S4 gallop. No audible murmur or rub. LUNGS: Bilateral breath sounds, diminished, right more than left. Fine crepitations at the right ba se. ABDOMEN: Mild distention, bowel sounds present, soft. EXTREMITIES: 2-point restraints for safety. SKIN: Without rash. EXTREMITIES: Without palpable cord. Peripheral pulses are intact, symmetric. NEUROLOGIC: Sedated on Diprivan and propofol. CURRENT MEDICATIONS: Tylenol 650 q. 6 p.r.n., DuoNeb 3 mL via nebulizer q. 6 hours p.r.n., Lovenox 4 0 subQ daily, Pepcid 20 IV q. 12, Keppra 500 mg IV q. 12, Ativan 2 mg IV q. 4 p.r.n., Zosyn 3.375 gra ms IV q. 6, potassium chloride supplement. LABORATORY DATA: WBC 10.7, hemoglobin 12.9, hematocrit 39.6, platelet count 113. PT 10.5, INR 1.01, PTT 28.1. ABG: pH 7.43, pCO2 41, pO2 102, oxygen saturation 99.8 on AC 12, tidal volume 500, FiO2 50%. SMA-7: Sodium , potassium 3.5, chloride 109, CO2 24, blood urea nitrogen 11, creatinine 0 .8, calcium 7.9, total bilirubin 1.3, AST 57, ALT 13, alkaline phosphatase 58. Total CK 578, total p rotein 5.6, albumin 2.8. Toxicology screen, opiates positive, acetaminophen less than 10, valproic a flaquito less than 10, alcohol level 122. Chest x-ray from this morning: Endotracheal tube in place. Bilateral basal haziness, more on the ri ght than left. No pneumothorax. No enlargement of the heart. IMPRESSION: 1. Ventilator-dependent respiratory failure with hypoxemia. 2. Aspiration pneumonia involving both lower lobes. Continue bronchodilator, Zosyn 3.375 grams IV q . 6. Reduce the sedation. If the patient remains less agitated, consider weaning off the ventilator . 3. History of substance abuse with alcohol and opiates, remains stable. 4. Suspected seizure, on Keppra. Follow electroencephalogram reading to be done. Continue deep lolis ous thrombosis/gastrointestinal prophylaxis. Will Willson MD cc: [id number] TT: 08/05/2016 10:10:56 Confirmation # [id number] Dictation # [id number] en
--- NOTE | 2016-08-05 10:43 | RAD ---
HISTORY: intubation COMPARISON: 08/04/2016 FINDINGS: LUNGS: Increasing opacity right middle lobe abutting minor fissure at its cephalad extent. No other opacity elsewhere. . PLEURA: Probable small right pleural effusion. No evidence of left pleural effusion. CARDIOVASCULAR: ET tube and NG tube grossly unchanged. OSSEOUS STRUCTURES: No significant abnormalities. VISUALIZED UPPER ABDOMEN: Normal. OTHER FINDINGS: None. IMPRESSION: Increasing right middle lobe opacity likely pneumonia. Probable small right pleural effusion.
--- NOTE | 2016-08-05 18:46 | CP.PCM.PN ---
Subjective - Date & Time of Evaluation Date of Evaluation: 08/05/16 Time of Evaluation: 18:43 - Subjective Subjective: patient is weaned off sedation.Woke up after 320 mts. Became very agitated, restless, with tachycardia, increased blood pressure. Sedation resumed. Extubation terminated. now comfortable on ventillator. SPO@ > 94%, normotensive. attempt to wean again in am Objective - Vital Signs/Intake and Output Vital Signs (last 24 hours): Temp Pulse Resp BP Pulse Ox 99.9 F H 68 18 125/60 98 08/05/16 16:00 08/05/16 16:00 08/05/16 16:00 08/05/16 16:00 08/05/16 16:00 Intake and Output: 08/05/16 08/05/16 06:59 18:59 Intake Total 2139 Output Total 850 Balance 1289 - Medications Medications: Current Medications Acetaminophen (Tylenol 650 Mg Supp) 650 mg SC Q6 PRN PRN Reason: Fever >100.4 F Last Admin: 08/04/16 20:24 Dose: 650 mg Albuterol/Ipratropium (Duoneb 3 Mg/0.5 Mg (3 Ml) Ud) 3 ml INH RQ6 PRN PRN Reason: Shortness of Breath Enoxaparin Sodium (Lovenox) 40 mg SC DAILY [facility] PRN Reason: Protocol Last Admin: 08/05/16 08:22 Dose: 40 mg Famotidine (Pepcid) 20 mg IVP Q12 [facility] Last Admin: 08/05/16 08:30 Dose: 20 mg Dextrose/Sodium Chloride (Dextrose 5%/0.9% Ns 1000 Ml) 1,000 mls @ 175 mls/hr IV .Q5H43M [facility] Last Admin: 08/05/16 10:55 Dose: 175 mls/hr Piperacillin Sod/Tazobactam (Sod 3.375 gm/ Sodium Chloride) 100 mls @ 100 mls/ hr IVPB Q6 [facility] Last Admin: 08/05/16 17:23 Dose: 100 mls/hr Levetiracetam 500 mg/ Sodium (Chloride) 105 mls @ 210 mls/hr IVPB Q12 [facility] Last Admin: 08/05/16 08:22 Dose: 210 mls/hr Propofol (Diprivan) 100 mls @ 2.722 mls/hr IV .Q24H [facility]; 5 MCG/KG/MIN PRN Reason: Protocol Stop: 08/06/16 18:01 Lorazepam (Ativan) 2 mg IVP Q4 PRN PRN Reason: Agitation Last Admin: 08/05/16 17:21 Dose: 2 mg Ondansetron HCl (Zofran Inj) 4 mg IVP Q4 PRN PRN Reason: Nausea/Vomiting - Labs Labs: 08/05/16 04:45 08/05/16 04:45 PT 10.5 SECONDS (9.6-11.2) 08/03/16 17:50 INR 1.01 (0.92-1.08) 08/03/16 17:50 APTT 28.8 SECONDS (23.3-32.5) 08/03/16 17:50
[2016-08-06] MEDS: Dextrose 5%/0.9% NS 1,000 ML IV SCH ×3 (02:30→09:40)
[2016-08-06] MEDS: Piperacillin/Tazobact 3.375 GM in Sodium Chloride 0.9% 100 ML IVPB SCH ×4 (03:05→21:19)
[2016-08-06 05:11] LABS: HEMATOCRIT 38.5 % (35.0-51.0); MEAN CELL VOLUME 89.5 fl (80.0-94.0); MEAN CORPUSCULAR HEMOGLOBIN 29.1 pg (27.0-31.0); MEAN CORPUSCULAR HGB CONC 32.5 g/dL (33.0-37.0); WHITE BLOOD COUNT 10.6 K/uL (4.8-10.8)
[2016-08-06 05:25] LABS: BLOOD UREA NITROGEN 7 mg/dl (9-20); CALCIUM 7.9 mg/dL (8.4-10.2); CARBON DIOXIDE 24 mmol/L (22-30); CHLORIDE 110 mmol/L (98-107); GFR AFRICAN-AMERICAN > 60; GLUCOSE,RANDOM 106 mg/dL (75-110); POTASSIUM 3.4 MMOL/L (3.6-5.0); SODIUM 146 mmol/l (132-148)
[2016-08-06 05:58] LABS: ABG ALLEN TEST YES; ABG MECHANICAL RATE 10; ARTERIAL BLOOD GAS HCO3 26.2 mmol/L (21-28); ARTERIAL BLOOD GAS MODE PRVC SIMV; ARTERIAL BLOOD GAS O2 CAPACITY 17.2 mL/dL (16-24); ARTERIAL BLOOD GAS O2 CONTENT 17.2 ML/dL (15-23); ARTERIAL BLOOD GAS PH 7.44 (7.35-7.45); ARTERIAL BLOOD GAS PO2 120 mm/Hg (80-100); ARTERIAL BLOOD HGB O2 SAT 95.4 % (95.0-98.0); CARBOXYHEMOGLOBIN 2.3 % (0.5-1.5); HHB 0.2 % (0.0-5.0)
--- NOTE | 2016-08-06 08:03 | CP.PCM.PN ---
Subjective - Date & Time of Evaluation Date of Evaluation: 08/06/16 Time of Evaluation: 08:01 - Subjective Subjective: no distress/sedated on vented. nsr on monitor bw noted, cxr noted weaning attempts yesterday unsuccessful Objective - Vital Signs/Intake and Output Vital Signs (last 24 hours): Temp Pulse Resp BP Pulse Ox 98.8 F 66 14 136/66 97 08/06/16 04:00 08/06/16 07:00 08/06/16 07:00 08/06/16 07:00 08/06/16 07:00 Intake and Output: 08/06/16 08/06/16 06:59 18:59 Intake Total 2089 Output Total 700 Balance 1389 - Medications Medications: Current Medications Acetaminophen (Tylenol 650 Mg Supp) 650 mg [place] Q6 PRN PRN Reason: Fever >100.4 F Last Admin: 08/05/16 20:13 Dose: 650 mg Albuterol/Ipratropium (Duoneb 3 Mg/0.5 Mg (3 Ml) Ud) 3 ml INH RQ6 PRN PRN Reason: Shortness of Breath Enoxaparin Sodium (Lovenox) 40 mg SC DAILY [facility] PRN Reason: Protocol Last Admin: 08/05/16 08:22 Dose: 40 mg Famotidine (Pepcid) 20 mg IVP Q12 [facility] Last Admin: 08/05/16 21:06 Dose: 20 mg Dextrose/Sodium Chloride (Dextrose 5%/0.9% Ns 1000 Ml) 1,000 mls @ 175 mls/hr IV .Q5H43M [facility] Last Admin: 08/06/16 04:12 Dose: Not Given Piperacillin Sod/Tazobactam (Sod 3.375 gm/ Sodium Chloride) 100 mls @ 100 mls/ hr IVPB Q6 [facility] Last Admin: 08/06/16 03:05 Dose: 100 mls/hr Levetiracetam 500 mg/ Sodium (Chloride) 105 mls @ 210 mls/hr IVPB Q12 [facility] Last Admin: 08/05/16 20:27 Dose: 210 mls/hr Propofol (Diprivan) 100 mls @ 10.886 mls/hr IV .Q9H12M [facility]; 20 MCG/KG/MIN PRN Reason: Protocol Stop: 08/06/16 19:01 Last Admin: 08/06/16 06:32 Dose: 10.8 mls/hr Lorazepam (Ativan) 2 mg IVP Q4 PRN PRN Reason: Agitation Last Admin: 08/06/16 03:11 Dose: 2 mg Ondansetron HCl (Zofran Inj) 4 mg IVP Q4 PRN PRN Reason: Nausea/Vomiting Pneumococcal Polyvalent Vaccine (Pneumovax 23 Vaccine) 0.5 ml IM .ONCE ONE Stop: 08/06/16 09:01 - Labs Labs: 08/06/16 04:30 08/06/16 04:30 PT 10.5 SECONDS (9.6-11.2) 08/03/16 17:50 INR 1.01 (0.92-1.08) 08/03/16 17:50 APTT 28.8 SECONDS (23.3-32.5) 08/03/16 17:50 - Constitutional Appears: Non-toxic, No Acute Distress - Head Exam Head Exam: ATRAUMATIC, NORMAL INSPECTION, NORMOCEPHALIC - Eye Exam Eye Exam: EOMI, Normal appearance, PERRL Pupil Exam: NORMAL ACCOMODATION, PERRL - ENT Exam ENT Exam: Mucous Membranes Moist, Normal Exam - Neck Exam Neck Exam: Full ROM, Normal Inspection. absent: Lymphadenopathy - Respiratory Exam Respiratory Exam: Clear to Ausculation Bilateral, NORMAL BREATHING PATTERN - Cardiovascular Exam Cardiovascular Exam: REGULAR RHYTHM, RRR, +S1, +S2. absent: Murmur - GI/Abdominal Exam GI & Abdominal Exam: Soft, Normal Bowel Sounds. absent: Tenderness - Extremities Exam Extremities Exam: Full ROM, Normal Capillary Refill, Normal Inspection. absent : Joint Swelling, Pedal Edema - Back Exam Back Exam: NORMAL INSPECTION - Neurological Exam Neurological Exam: Alert, Awake, CN II-XII Intact, Normal Gait, Oriented x3 - Psychiatric Exam Psychiatric exam: Normal Affect, Normal Mood - Skin Skin Exam: Dry, Intact, Normal Color, Warm Assessment and Plan (1) Unresponsive state Status: Acute (2) DVT prophylaxis Status: Acute (3) Aspiration pneumonia Status: Acute - Assessment and Plan (Free Text) Assessment: (1) Unresponsive state Assessment and Plan: h/o opioid abuse, + opioids in tox icu neuro intubated for airway protection propofol/versed gtt eeg-pending results kera neuro consult appriciated Status: Acute (2) DVT prophylaxis Assessment and Plan: scd nad ae hose lovenox Status: Acute 3-aspiration pna-zosyn, pulm-riggins updated bw and cxr noted
--- NOTE | 2016-08-06 08:09 | CP.CCUPN ---
<Ravin Galvan - Last Filed: 08/06/16 14:41> CCU Subjective - Physician Review Events Since Last Encounter (Free Text): 08/06/16 12:52 Pt. seen and examined at bedside after self-extubation at 9a.m. currently on oxygen via venti mask at 40% off of sedation in NAD. Pt. still delerious opening his eyes spontaneously but not responding to questions. 08/06/16 12:57 08/06/16 14:41 CCU Objective - Vital Signs / Intake & Output Vital Signs (Last 4 hours): Vital Signs Pulse Resp BP Pulse Ox 08/06/16 07:00 66 14 136/66 97 08/06/16 06:00 80 24 147/72 97 08/06/16 05:00 72 14 154/69 H 97 Intake and Output (Last 8hrs): Intake & Output 08/05/16 08/06/16 08/06/16 22:59 06:59 14:59 Intake Total 680 1409 Output Total 200 500 Balance 480 909 Intake: IV 480 1409 Intake, Piggyback 200 Output: Urine 200 500 Urethral ([place]) 200 500 - Physical Exam Head: Positive for: Atraumatic, Normocephalic Pupils: Positive for: PERRL Conjunctiva: Negative for: Icteric Mouth: Positive for: Moist Mucous Membranes Neck: Positive for: Other (Supple). Negative for: JVD Respiratory/Chest: Positive for: Clear to Auscultation, Good Air Exchange Abdomen: Negative for: Tenderness Other physical findings (Free Text): Arousable, Spontaneous eye movement, currently unable to assess - Medications Active Medications: Active Medications Generic Name Dose Route Start Last Admin Trade Name Freq PRN Reason Stop Dose Admin Acetaminophen 650 mg 08/03/16 20:22 08/05/16 20:13 [address]ylen[address] 650 mg Q6 PRN Administration Fever >100.4 F Albuterol/Ipratropium 3 ml 08/04/16 09:20 Duoneb 3 Mg/0.5 Mg (3 Ml) Ud INH RQ6 PRN Shortness of Breath Enoxaparin Sodium 40 mg 08/04/16 09:00 08/05/16 08:22 Lovenox SC 40 mg DAILY JASPREET Administration Protocol Famotidine 20 mg 08/04/16 09:00 08/05/16 21:06 Pepcid IVP 20 mg Q12 JASPREET Administration Dextrose/Sodium Chloride 1,000 mls @ 175 mls/hr 08/03/16 23:53 08/06/16 04:12 Dextrose 5%/0.9% Ns 1000 Ml IV Not Given .Q5H43M JASPREET Piperacillin Sod/Tazobactam 100 mls @ 100 mls/hr 08/04/16 08:00 08/06/16 03:05 Sod 3.375 gm/ Sodium Chloride IVPB 100 mls/hr Q6 JASPREET Administration Levetiracetam 500 mg/ Sodium 105 mls @ 210 mls/hr 08/04/16 21:00 08/05/16 20:27 Chloride IVPB 210 mls/hr Q12 JASPREET Administration Propofol 100 mls @ 10.886 mls/hr 08/05/16 19:00 08/06/16 06:32 Diprivan IV 08/06/16 19:01 10.8 mls/hr .Q9H12M JASPREET Administration Protocol 20 MCG/KG/MIN Lorazepam 2 mg 08/04/16 17:07 08/06/16 03:11 Ativan IVP 2 mg Q4 PRN Administration Agitation Ondansetron HCl 4 mg 08/03/16 20:22 Zofran Inj IVP Q4 PRN Nausea/Vomiting Pneumococcal Polyvalent Vaccine 0.5 ml 08/06/16 09:00 Pneumovax 23 Vaccine IM 08/06/16 09:01 .ONCE ONE - Patient Studies Lab Studies: Microbiology Studies 08/04/16 06:18 Gram Stain - Final Trachasp Lab Studies 08/06/16 08/06/16 Range/Units 05:28 04:30 WBC 10.6 (4.8-10.8) K/uL RBC 4.30 L (4.40-5.90) Mil/uL Hgb 12.5 (12.0-18.0) g/dL Hct 38.5 (35.0-51.0) % MCV 89.5 (80.0-94.0) fl MCH 29.1 (27.0-31.0) pg MCHC 32.5 L (33.0-37.0) g/dL RDW 14.0 (11.5-14.5) % Plt Count 118 L (130-400) K/uL pCO2 38 (35-45) mm/Hg pO2 120 H (80-100) mm/Hg HCO3 26.2 (21-28) mmol/L ABG pH 7.44 (7.35-7.45) ABG Total CO2 27.0 (22-28) mmol/L ABG O2 Saturation 99.8 H (95-98) % ABG O2 Content 17.2 (15-23) ML/dL ABG Base Excess 1.7 (-2.0-3.0) mmol/L ABG Hemoglobin 12.7 (11.7-17.4) g/dL ABG Carboxyhemoglobin 2.3 H (0.5-1.5) % POC ABG HHb (Measured) 0.2 (0.0-5.0) % ABG Methemoglobin 2.0 (0.0-3.0) % ABG O2 Capacity 17.2 (16-24) mL/dL Denis Test Yes A-a O2 Difference 118.0 mm/Hg Hgb O2 Saturation 95.4 (95.0-98.0) % Vent Mode Prvc simv Mechanical Rate 10 FiO2 40.0 % Tidal Volume 500 Pressure Support 12 Crit Value Called By 333 Blood Gas Notified Time 555 Sodium 146 (132-148) mmol/l Potassium 3.4 L (3.6-5.0) MMOL/L Chloride 110 H (98-107) mmol/L Carbon Dioxide 24 (22-30) mmol/L Anion Gap 15 (10-20) BUN 7 L (9-20) mg/dl Creatinine 0.8 (0.8-1.5) mg/dL Est GFR ( Amer) > 60 Est GFR (Non-Af Amer) > 60 Random Glucose 106 (75-110) mg/dL Calcium 7.9 L (8.4-10.2) mg/dL Laboratory Results - last 24 hr 08/06/16 08/06/16 04:30 05:28 WBC 10.6 RBC 4.30 L Hgb 12.5 Hct 38.5 MCV 89.5 MCH 29.1 MCHC 32.5 L RDW 14.0 Plt Count 118 L pCO2 38 pO2 120 H HCO3 26.2 ABG pH 7.44 ABG Total CO2 27.0 ABG O2 Saturation 99.8 H ABG O2 Content 17.2 ABG Base Excess 1.7 ABG Hemoglobin 12.7 ABG Carboxyhemoglobin 2.3 H POC ABG HHb (Measured) 0.2 ABG Methemoglobin 2.0 ABG O2 Capacity 17.2 Denis Test Yes A-a O2 Difference 118.0 Hgb O2 Saturation 95.4 Vent Mode Prvc simv Mechanical Rate 10 FiO2 40.0 Tidal Volume 500 Pressure Support 12 Crit Value Called By 333 Blood Gas Notified Time 555 Sodium 146 Potassium 3.4 L Chloride 110 H Carbon Dioxide 24 Anion Gap 15 BUN 7 L Creatinine 0.8 Est GFR ( Amer) > 60 Est GFR (Non-Af Amer) > 60 Random Glucose 106 Calcium 7.9 L Fingerstick Blood Sugar Results: 103 Review of Systems - Review of Systems Review of Systems: See HPI Assessment/Plan - Assessment and Plan (Free Text) Assessment: 41 y.o. male with hx of polysubstance abuse and seizure disorded admitted to ICU due to altered mental status on mechanical ventilation now self extubated. 1- Altered mental status secondary to Polysubstance abuse- Pt. still delerious Utox positive for ETOH 122 & Opiates a- c/w folic acid b- c/w Thimine c- I.V. fluids 2- Seizure disorder a- Keppra 500mg PO BID 3- Aspiration Pneumonia a- c/w Zosyn b- Aspiration precautions 4- Diet a- Regular- advance as tolerated 5- DVT prophylaxis a- Lovenox 40mg sc 6- GI prophylaxis a- 40mg Protonix sc <Henry Avitia - Last Filed: 08/06/16 16:56> CCU Subjective - Physician Review Subjective (Free Text): Attestation: Patient seen and examined at the bedside with Resident Dr. Edwin Galvan; and I agree with his outline of plans and management documented below as discussed on AM rounds reflecting my review of all applicable clinical data, and participation in the care of the patient throughout the day in ICU; today, August 06, 2016.
[2016-08-06] MEDS: Enoxaparin 40 mg Syringe SC SCH (08:31)
[2016-08-06] MEDS: levETIRAcetam 500 MG in Sodium Chloride 0.9% 100 ML IVPB SCH (08:32)
[2016-08-06] MEDS ORDERED: Pneumococcal 23-Valent Vaccine IM ONE (09:00)
--- NOTE | 2016-08-06 09:58 | CP.PCM.PN ---
Subjective - Date & Time of Evaluation Date of Evaluation: 08/06/16 Time of Evaluation: 09:58 - Subjective Subjective: EXTUBATED TODAY STILL AGITATED NO RESPIRATORY DISTRESS WILL CONTINUE TO MONITOR Objective - Vital Signs/Intake and Output Vital Signs (last 24 hours): Temp Pulse Resp BP Pulse Ox 98.4 F 64 22 147/80 96 08/06/16 08:00 08/06/16 08:00 08/06/16 08:00 08/06/16 08:00 08/06/16 08:00 Intake and Output: 08/06/16 08/06/16 06:59 18:59 Intake Total 2089 370 Output Total 700 Balance 1389 370 - Medications Medications: Current Medications Acetaminophen (Tylenol 650 Mg Supp) 650 mg CA Q6 PRN PRN Reason: Fever >100.4 F Last Admin: 08/05/16 20:13 Dose: 650 mg Albuterol/Ipratropium (Duoneb 3 Mg/0.5 Mg (3 Ml) Ud) 3 ml INH RQ6 PRN PRN Reason: Shortness of Breath Enoxaparin Sodium (Lovenox) 40 mg SC DAILY JASPREET PRN Reason: Protocol Last Admin: 08/06/16 08:31 Dose: 40 mg Famotidine (Pepcid) 20 mg IVP Q12 [facility] Last Admin: 08/06/16 08:31 Dose: 20 mg Dextrose/Sodium Chloride (Dextrose 5%/0.9% Ns 1000 Ml) 1,000 mls @ 175 mls/hr IV .Q5H43M [facility] Last Admin: 08/06/16 09:40 Dose: 175 mls/hr Piperacillin Sod/Tazobactam (Sod 3.375 gm/ Sodium Chloride) 100 mls @ 100 mls/ hr IVPB Q6 [facility] Last Admin: 08/06/16 09:33 Dose: 100 mls/hr Levetiracetam 500 mg/ Sodium (Chloride) 105 mls @ 210 mls/hr IVPB Q12 [facility] Last Admin: 08/06/16 08:32 Dose: 210 mls/hr Lorazepam (Ativan) 2 mg IVP Q4 PRN PRN Reason: Agitation Last Admin: 08/06/16 03:11 Dose: 2 mg Ondansetron HCl (Zofran Inj) 4 mg IVP Q4 PRN PRN Reason: Nausea/Vomiting - Labs Labs: 04/12/17 04:30 08/06/16 04:30 PT 10.5 SECONDS (9.6-11.2) 08/03/16 17:50 INR 1.01 (0.92-1.08) 08/03/16 17:50 APTT 28.8 SECONDS (23.3-32.5) 08/03/16 17:50
--- NOTE | 2016-08-06 10:34 | RAD ---
HISTORY: CHECK ETT PLACEMENT . Technique: Single view portable erect @ 23:20 COMPARISON: . Multiple serial examinations preceding the most recent study: August 05, 2016. 04:39. FINDINGS: LUNGS: Improved aeration right lower lobe. PLEURA: No significant pleural effusion identified, no pneumothorax apparent. CARDIOVASCULAR: Normal. OSSEOUS STRUCTURES: No significant abnormalities. VISUALIZED UPPER ABDOMEN: Normal. OTHER FINDINGS: Stable/satisfactory position of endotracheal tube. Chest nasogastric tube is incompletely visualized. IMPRESSION: Improving right lower lobe infiltrate.
--- NOTE | 2016-08-06 10:49 | RAD ---
HISTORY: Intubated. . Technique: Single view portable erect @ 04:40 COMPARISON: August 05, 2016. 23:20. FINDINGS: LUNGS: Worsening right lower lobe infiltrate. PLEURA: No significant pleural effusion identified, no pneumothorax apparent. CARDIOVASCULAR: Normal. OSSEOUS STRUCTURES: No significant abnormalities. VISUALIZED UPPER ABDOMEN: Normal. OTHER FINDINGS: Stable position of support apparatus including endotracheal tube and nasogastric tube. IMPRESSION: Progressive/worsening right lower lobe infiltrate.
--- NOTE | 2016-08-07 02:59 | EEG ---
DATE: 08/07/2016 The record is obtained for a history of rule out seizures and patient had a history of acute CVA, lef t-sided weakness. The record was obtained while awake, drowsy, and asleep. The record was symmetric ally equal on both sides with velocity of 6 cycles per second. The waves are fairly formed, fairly o rganized with no specific distribution, average in amplitude, fairly reactive to eye opening. There were no abnormal discharges. No spike, polyspike, no sharp wave, no focal slowing, paroxysmal discha rge. The record did not show any changes with photic stimulation. The hyperventilation was omitted. There are periods of drowsiness during which attenuation and slowing of the record were seen and th eta waves were seen. There were periods of sleep during which delta waves were seen. There were eye movement artifact, electrode artifact, and muscle movement artifacts. In sum, this is an abnormal record, significant for generalized slowing and poorly formed record. Th is might be consistent with encephalopathy. Clinical correlation is recommended. Dexter Bender MD cc: [id number] TT: 08/07/2016 02:59:30 Confirmation # [id number] Dictation # [id number] mandy
[2016-08-07] MEDS: Piperacillin/Tazobact 3.375 GM in Sodium Chloride 0.9% 100 ML IVPB SCH ×2 (04:50→09:11)
[2016-08-07 06:20] LABS: HEMATOCRIT 38.9 % (35.0-51.0); MEAN CELL VOLUME 87.7 fl (80.0-94.0); MEAN CORPUSCULAR HEMOGLOBIN 28.8 pg (27.0-31.0); MEAN CORPUSCULAR HGB CONC 32.9 g/dL (33.0-37.0); RED CELL DISTRIBUTION WIDTH 13.5 % (11.5-14.5); WHITE BLOOD COUNT 8.1 K/uL (4.8-10.8)
[2016-08-07 06:28] LABS: BLOOD UREA NITROGEN 8 mg/dl (9-20); CALCIUM 8.2 mg/dL (8.4-10.2); CARBON DIOXIDE 24 mmol/L (22-30); CHLORIDE 109 mmol/L (98-107); GFR AFRICAN-AMERICAN > 60; GLUCOSE,RANDOM 87 mg/dL (75-110); POTASSIUM 3.3 MMOL/L (3.6-5.0); SODIUM 145 mmol/l (132-148)
--- NOTE | 2016-08-07 07:29 | CP.PCM.PN ---
Subjective - Date & Time of Evaluation Date of Evaluation: 08/07/16 Time of Evaluation: 07:29 - Subjective Subjective: pt awake alert oriented. no distress, minimal cough. bw wnl. pt is calm adn cooperative at present no si/hi. pt admited to 2x 10mg percocets prior to events. pt self wxtubated yesterday. vs stable. for downgrade later today, case d/c w/ dr ortega Objective - Vital Signs/Intake and Output Vital Signs (last 24 hours): Temp Pulse Resp BP Pulse Ox 99.3 F 56 L 23 174/79 H 92 L 08/07/16 04:00 08/07/16 06:00 08/07/16 06:00 08/07/16 06:00 08/07/16 04:00 - Medications Medications: Current Medications Albuterol/Ipratropium (Duoneb 3 Mg/0.5 Mg (3 Ml) Ud) 3 ml INH RQ6 PRN PRN Reason: Shortness of Breath Enoxaparin Sodium (Lovenox) 40 mg SC DAILY COUNT INCLUDES [facility] PRN Reason: Protocol Last Admin: 08/06/16 08:31 Dose: 40 mg Famotidine (Pepcid) 40 mg PO HS COUNT INCLUDES [facility] Last Admin: 08/06/16 21:19 Dose: 40 mg Folic Acid (Folic Acid) 1 mg PO DAILY COUNT INCLUDES [facility] Last Admin: 08/06/16 16:44 Dose: 1 mg Piperacillin Sod/Tazobactam (Sod 3.375 gm/ Sodium Chloride) 100 mls @ 100 mls/ hr IVPB Q6 COUNT INCLUDES [facility] Last Admin: 08/07/16 04:50 Dose: 100 mls/hr Levetiracetam (Keppra) 500 mg PO BID COUNT INCLUDES [facility] Last Admin: 08/06/16 16:43 Dose: 500 mg Ondansetron HCl (Zofran Inj) 4 mg IVP Q4 PRN PRN Reason: Nausea/Vomiting Thiamine HCl (Vitamin B1 Tab) 100 mg PO DAILY COUNT INCLUDES [facility] Last Admin: 08/06/16 16:43 Dose: 100 mg - Labs Labs: 08/07/16 06:00 08/07/16 06:00 PT 10.5 SECONDS (9.6-11.2) 08/03/16 17:50 INR 1.01 (0.92-1.08) 08/03/16 17:50 APTT 28.8 SECONDS (23.3-32.5) 08/03/16 17:50 - Constitutional Appears: Well, Non-toxic, No Acute Distress - Head Exam Head Exam: ATRAUMATIC, NORMAL INSPECTION, NORMOCEPHALIC - Eye Exam Eye Exam: EOMI, Normal appearance, PERRL Pupil Exam: NORMAL ACCOMODATION, PERRL - ENT Exam ENT Exam: Mucous Membranes Moist, Normal Exam - Neck Exam Neck Exam: Full ROM, Normal Inspection. absent: Lymphadenopathy - Respiratory Exam Respiratory Exam: Clear to Ausculation Bilateral, NORMAL BREATHING PATTERN - Cardiovascular Exam Cardiovascular Exam: REGULAR RHYTHM, RRR, +S1, +S2. absent: Murmur - GI/Abdominal Exam GI & Abdominal Exam: Soft, Normal Bowel Sounds. absent: Tenderness - Extremities Exam Extremities Exam: Full ROM, Normal Capillary Refill, Normal Inspection. absent : Joint Swelling, Pedal Edema - Back Exam Back Exam: NORMAL INSPECTION - Neurological Exam Neurological Exam: Alert, Awake, CN II-XII Intact, Normal Gait, Oriented x3 - Psychiatric Exam Psychiatric exam: Normal Affect, Normal Mood - Skin Skin Exam: Dry, Intact, Normal Color, Warm Assessment and Plan (1) Unresponsive state Assessment & Plan: sz, od eeg, neuro off vent, resps evne and unlabored for downgrade SSconsult Status: Acute (2) DVT prophylaxis Assessment & Plan: scd nad aehose, lovenox Status: Acute (3) Aspiration pneumonia Assessment & Plan: zosyn, pulm Status: Acute
[2016-08-07 08:11] VITALS: O2SAT 95
[2016-08-07] MEDS: Enoxaparin 40 mg Syringe SC SCH (08:25)
--- NOTE | 2016-08-07 08:26 | CP.PCM.PN ---
Subjective - Date & Time of Evaluation Date of Evaluation: 08/07/16 Time of Evaluation: 08:26 - Subjective Subjective: MORE AWAKE AND ALERT LESS AGITATED Objective - Vital Signs/Intake and Output Vital Signs (last 24 hours): Temp Pulse Resp BP Pulse Ox 99.5 F 56 L 22 147/87 95 08/07/16 08:00 08/07/16 08:00 08/07/16 08:00 08/07/16 08:00 08/07/16 08:00 - Medications Medications: Current Medications Albuterol/Ipratropium (Duoneb 3 Mg/0.5 Mg (3 Ml) Ud) 3 ml INH RQ6 PRN PRN Reason: Shortness of Breath Enoxaparin Sodium (Lovenox) 40 mg SC DAILY [facility] PRN Reason: Protocol Last Admin: 08/06/16 08:31 Dose: 40 mg Famotidine (Pepcid) 40 mg PO HS [facility] Last Admin: 08/06/16 21:19 Dose: 40 mg Folic Acid (Folic Acid) 1 mg PO DAILY [facility] Last Admin: 08/06/16 16:44 Dose: 1 mg Piperacillin Sod/Tazobactam (Sod 3.375 gm/ Sodium Chloride) 100 mls @ 100 mls/ hr IVPB Q6 [facility] Last Admin: 08/07/16 04:50 Dose: 100 mls/hr Levetiracetam (Keppra) 500 mg PO BID [facility] Last Admin: 08/06/16 16:43 Dose: 500 mg Ondansetron HCl (Zofran Inj) 4 mg IVP Q4 PRN PRN Reason: Nausea/Vomiting Thiamine HCl (Vitamin B1 Tab) 100 mg PO DAILY [facility] Last Admin: 08/06/16 16:43 Dose: 100 mg - Labs Labs: 08/07/16 06:00 08/07/16 06:00 PT 10.5 SECONDS (9.6-11.2) 08/03/16 17:50 INR 1.01 (0.92-1.08) 08/03/16 17:50 APTT 28.8 SECONDS (23.3-32.5) 08/03/16 17:50 - Constitutional Appears: No Acute Distress - Head Exam Head Exam: ATRAUMATIC, NORMAL INSPECTION, NORMOCEPHALIC - Eye Exam Eye Exam: EOMI, Normal appearance, PERRL Pupil Exam: NORMAL ACCOMODATION, PERRL - ENT Exam ENT Exam: Mucous Membranes Moist, Normal Exam - Neck Exam Neck Exam: Full ROM, Normal Inspection. absent: Lymphadenopathy - Respiratory Exam Respiratory Exam: Decreased Breath Sounds, Prolonged Expiratory Phase, Rales, NORMAL BREATHING PATTERN - Cardiovascular Exam Cardiovascular Exam: REGULAR RHYTHM, +S1, +S2. absent: Murmur - GI/Abdominal Exam GI & Abdominal Exam: Soft, Normal Bowel Sounds. absent: Tenderness - Rectal Exam Rectal Exam: NORMAL INSPECTION - Extremities Exam Extremities Exam: Full ROM, Normal Capillary Refill, Normal Inspection. absent : Joint Swelling, Pedal Edema - Back Exam Back Exam: NORMAL INSPECTION - Neurological Exam Neurological Exam: Alert, Awake, CN II-XII Intact, Normal Gait, Oriented x3 - Psychiatric Exam Psychiatric exam: Normal Affect, Normal Mood - Skin Skin Exam: Dry, Intact, Normal Color, Warm Assessment and Plan - Assessment and Plan (Free Text) Assessment: RESP FAILURE IMPROVED PNEUMONIA PERSISTS--R BASE Plan: CONTINUE ANTIBIOTIC RX REPEAT CXR
[2016-08-07] MEDS: Promethazine 12.5 mg/10 ml Syrup PO PRN ×2 (08:44→13:51)
--- NOTE | 2016-08-07 10:02 | RAD ---
PROCEDURE: CHEST RADIOGRAPH, 1 VIEW HISTORY: PNEUMONIA COMPARISON: 08/06/2016 FINDINGS: LUNGS: There is slight improvement in the right lower lobe infiltrate. PLEURA: No pneumothorax or pleural fluid seen. CARDIOVASCULAR: Mild cardiomegaly. Mild vascular congestion OSSEOUS STRUCTURES: No significant abnormalities. VISUALIZED UPPER ABDOMEN: Normal. OTHER FINDINGS: None. IMPRESSION: Improved right lower lobe infiltrate
[2016-08-07 13:05] VITALS: RESP 23
[2016-08-07 13:07] VITALS: BP 117/75; PULSE 55; TEMP 100
[2016-08-07] MEDS ORDERED: Potassium Chloride 10 mEq ER Tab PO ONE (13:49)
--- NOTE | 2016-08-07 13:57 | CP.PCM.PCO ---
Physician Communication Note - Physician Communication Note Physician Communication Note: Significant bradycardia noted with HR down to 30's , Keppra stopped.
--- NOTE | 2016-08-07 15:25 | CP.PCM.DIS ---
Provider - Provider Date of Admission: 08/03/16 20:03 Attending physician: Ramirez Arreguin MD Time Spent in preparation of Discharge (in minutes): 5 Diagnosis - Discharge Diagnosis (1) Unresponsive state Status: Acute (2) DVT prophylaxis Status: Acute (3) Aspiration pneumonia Status: Acute Hospital Course - Lab Results Lab Results: Micro Results 08/04/16 06:18 Trachasp Gram Stain - Final 08/04/16 06:18 Trachasp Sputum Culture - Final NORMAL ORAL FINESSE Most Recent Lab Values WBC 8.1 K/uL (4.8-10.8) 08/07/16 06:00 RBC 4.44 Mil/uL (4.40-5.90) 08/07/16 06:00 Hgb 12.8 g/dL (12.0-18.0) 08/07/16 06:00 Hct 38.9 % (35.0-51.0) 08/07/16 06:00 MCV 87.7 fl (80.0-94.0) 08/07/16 06:00 MCH 28.8 pg (27.0-31.0) 08/07/16 06:00 MCHC 32.9 g/dL (33.0-37.0) L 08/07/16 06:00 RDW 13.5 % (11.5-14.5) 08/07/16 06:00 Plt Count 136 K/uL (130-400) 08/07/16 06:00 MPV 9.8 fl (7.2-11.7) 08/04/16 04:30 Neut % (Auto) 80.8 % (50.0-75.0) H 08/04/16 04:30 Lymph % (Auto) 12.1 % (20.0-40.0) L 08/04/16 04:30 [place] % (Auto) 5.6 % (0.0-10.0) 08/04/16 04:30 Eos % (Auto) 0.9 % (0.0-4.0) 08/04/16 04:30 Baso % (Auto) 0.6 % (0.0-2.0) 08/04/16 04:30 Neut # 6.0 K/uL (1.8-7.0) 08/04/16 04:30 Lymph # 0.9 K/uL (1.0-4.3) L 08/04/16 04:30 [place] # 0.4 K/uL (0.0-0.8) 08/04/16 04:30 Eos # 0.1 K/uL (0.0-0.7) 08/04/16 04:30 Baso # 0.0 K/uL (0.0-0.2) 08/04/16 04:30 PT 10.5 SECONDS (9.6-11.2) 08/03/16 17:50 INR 1.01 (0.92-1.08) 08/03/16 17:50 APTT 28.8 SECONDS (23.3-32.5) 08/03/16 17:50 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 08/04/16 05:08 pCO2 38 mm/Hg (35-45) 08/06/16 05:28 pO2 120 mm/Hg (80-100) H 08/06/16 05:28 HCO3 26.2 mmol/L (21-28) 08/06/16 05:28 ABG pH 7.44 (7.35-7.45) 08/06/16 05:28 ABG Total CO2 27.0 mmol/L (22-28) 08/06/16 05:28 ABG O2 Saturation 99.8 % (95-98) H 08/06/16 05:28 ABG O2 Content 17.2 ML/dL (15-23) 08/06/16 05:28 ABG Base Excess 1.7 mmol/L (-2.0-3.0) 08/06/16 05:28 ABG Hemoglobin 12.7 g/dL (11.7-17.4) 08/06/16 05:28 ABG Carboxyhemoglobin 2.3 % (0.5-1.5) H 08/06/16 05:28 POC ABG HHb (Measured) 0.2 % (0.0-5.0) 08/06/16 05:28 ABG Methemoglobin 2.0 % (0.0-3.0) 08/06/16 05:28 ABG O2 Capacity 17.2 mL/dL (16-24) 08/06/16 05:28 Denis Test Yes 08/06/16 05:28 ABG Potassium 3.8 mmol/L (3.6-5.2) 08/03/16 17:27 A-a O2 Difference 118.0 mm/Hg 08/06/16 05:28 Hgb O2 Saturation 95.4 % (95.0-98.0) 08/06/16 05:28 Sodium 141.0 mmol/L (132-148) 08/03/16 17:27 Chloride 110.0 mmol/L (98-107) H 08/03/16 17:27 Glucose 108 mg/dL (75-110) 08/03/16 17:27 Lactate 1.8 mmol/L (0.7-2.1) 08/03/16 17:27 Vent Mode Prvc simv 08/06/16 05:28 Mechanical Rate 10 08/06/16 05:28 FiO2 40.0 % 08/06/16 05:28 Tidal Volume 500 08/06/16 05:28 PEEP 10 08/04/16 05:08 Pressure Support 12 08/06/16 05:28 Crit Value Called By 333 08/06/16 05:28 Blood Gas Notified Time 555 08/06/16 05:28 Sodium 145 mmol/l (132-148) 08/07/16 06:00 Potassium 3.3 MMOL/L (3.6-5.0) L 08/07/16 06:00 Chloride 109 mmol/L (98-107) H 08/07/16 06:00 Carbon Dioxide 24 mmol/L (22-30) 08/07/16 06:00 Anion Gap 15 (10-20) 08/07/16 06:00 BUN 8 mg/dl (9-20) L 08/07/16 06:00 Creatinine 0.8 mg/dL (0.8-1.5) 08/07/16 06:00 Est GFR ( Amer) > 60 08/07/16 06:00 Est GFR (Non-Af Amer) > 60 08/07/16 06:00 Random Glucose 87 mg/dL (75-110) 08/07/16 06:00 Calcium 8.2 mg/dL (8.4-10.2) L 08/07/16 06:00 Total Bilirubin 1.3 mg/dl (0.2-1.3) 08/05/16 04:45 AST 57 U/L (17-59) 08/05/16 04:45 ALT 13 U/L (21-72) L D 08/05/16 04:45 Alkaline Phosphatase 58 U/L (38-126) 08/05/16 04:45 Ammonia 25 umo/L (16-60) 08/03/16 17:50 Total Creatine Kinase 578 U/L (55-170) H 08/04/16 09:23 Troponin I < 0.0120 ng/mL (0.00-0.120) 08/03/16 17:50 Total Protein 5.6 G/DL (6.3-8.2) L 08/05/16 04:45 Albumin 2.8 g/dL (3.5-5.0) L D 08/05/16 04:45 Globulin 2.8 gm/dL (2.2-3.9) 08/05/16 04:45 Albumin/Globulin Ratio 1.0 (1.0-2.1) 08/05/16 04:45 Arterial Blood Potassium 3.8 mmol/L (3.6-5.2) 08/03/16 17:27 Salicylates < 1.0 mg/dl 08/03/16 17:50 Urine Opiates Screen Positive (NEGATIVE) H 08/03/16 17:50 Urine Methadone Screen Negative (NEGATIVE) 08/03/16 17:50 Acetaminophen < 10.0 ug/ml (10.0-30.0) L 08/03/16 17:50 Ur Barbiturates Screen Negative (NEGATIVE) 08/03/16 17:50 Valproic Acid < 10.0 ug/mL (50.0-100.0) L 08/03/16 17:50 Ur Phencyclidine Scrn Negative (NEGATIVE) 08/03/16 17:50 Ur Amphetamines Screen Negative (NEGATIVE) 08/03/16 17:50 U Benzodiazepines Scrn Negative (NEGATIVE) 08/03/16 17:50 U Oth Cocaine Metabols Negative (NEGATIVE) 08/03/16 17:50 U Cannabinoids Screen Negative (NEGATIVE) 08/03/16 17:50 Alcohol, Quantitative < 10 mg/dl (0-10) 08/04/16 04:30 HIV 1&2 Antibody Screen Negative (NEGATIVE) 08/04/16 09:23 Discharge Exam - Head Exam Head Exam: ATRAUMATIC, NORMAL INSPECTION, NORMOCEPHALIC Discharge Plan - Follow Up Plan Condition: SERIOUS Disposition: HOME/ ROUTINE Additional Instructions: pt signed ama. all records reviewed.this provider was alerted by Dr. ortega icu attending. final dx-od, seizure-provoked
== END 2016-08-07 14:00 | disposition left against medical advice (07) | DRG 582 ==
LOC: H.ER 17:01 → UNDOADMIN 19:47 → H.ERHOLD 19:47 → H.ICU/CCU 21:27
PROVIDERS: ADMIT Family Medicine; ATTEND Family Medicine
PROC: 5A1945Z Respiratory Ventilation, 24-96 Consecutive Hours (ICD-10-PCS; principal; 2016-08-03)
PROC: 0BH17EZ Insertion of Endotracheal Airway into Trachea, Via Natural or Artificial Opening (ICD-10-PCS; 2016-08-03)
DX: T40.2X1A Poisoning by other opioids, accidental (unintentional), initial encounter (principal); J96.01 Acute respiratory failure with hypoxia; J69.0 Pneumonitis due to inhalation of food and vomit; J96.02 Acute respiratory failure with hypercapnia; G93.41 Metabolic encephalopathy; N18.9 Chronic kidney disease, unspecified; F11.129 Opioid abuse with intoxication, unspecified; R56.9 Unspecified convulsions; I12.9 Hypertensive chronic kidney disease with stage 1 through stage 4 chronic kidney disease, or unspecified chronic kidney disease; Y90.6 Blood alcohol level of 120-199 mg/100 ml; F10.129 Alcohol abuse with intoxication, unspecified; Z91.14 Patient's other noncompliance with medication regimen; Z87.891 Personal history of nicotine dependence; T51.0X1A Toxic effect of ethanol, accidental (unintentional), initial encounter; R45.1 Restlessness and agitation; Z78.1 Physical restraint status; R00.1 Bradycardia, unspecified

== ENCOUNTER 2016-08-07 18:09 | Emergency (ER) | payer MEDICAID ==
[2016-08-07 18:09] VITALS: BMI 33.3
[2016-08-07 19:10] VITALS: BP 155/88; PULSE 60; RESP 18; TEMP 97.6; O2SAT 97
--- NOTE | 2016-08-07 19:28 | ED PDOC ---
HPI: General Adult Time Seen by Provider: 08/07/16 19:08 Chief Complaint (Nursing): Medical Clearance History Per: Patient History/Exam Limitations: no limitations Onset/Duration Of Symptoms: Unknown Additional Complaint(s): Edward Casarez is a 41 year old non domiciled male, with a previous medical history of hypertension, who presents to the ED requesting discharge papers so that [facility]. Pt reports to being admitted to the hospital on August 03, 2016 after suffering a seizure and having pneumonia. Pt states he left AMA today since he felt better. Pt reports to seeing his PMD, Dr. Arreguin, today who prescribed levaquin. Pt also reports a CXR was taken today prior to him leaving AMA. Pt denies currently having fever, chills, hemoptysis, nausea, vomiting or chest pains. Of note, pt is also requesting a cough medication. PMD: Dr. Arreguin Past Medical History Reviewed: Historical Data, Nursing Documentation, Vital Signs Vital Signs: Last Vital Signs Temp 97.6 F 08/07/16 19:07 Pulse 60 08/07/16 19:07 Resp 18 08/07/16 19:07 BP 155/88 H 08/07/16 19:07 Pulse Ox 97 08/07/16 19:34 - Medical History PMH: HTN (not on meds) Denies: Diabetes, Hepatitis, HIV, Chronic Kidney Disease, Seizures, Sexually Transmitted Disease - Family History Family History: States: Unknown Family Hx - Immunization History Hx Tetanus Toxoid Vaccination: No Hx Influenza Vaccination: Yes Hx Pneumococcal Vaccination: No - Home Medications Home Medications: Ambulatory Orders Medication Instructions Recorded Albuterol HFA [Ventolin HFA 90 2 puff IH [id number] PRN #60 puff 08/07/16 mcg/actuation (8 g)] Promethazine DM [Phenergan DM 5 - 10 ml PO Q8 PRN #120 ml 08/07/16 Syrup] - Allergies Allergies/Adverse Reactions: Allergies Allergy/AdvReac Type Severity Reaction Status Date / Time No Known Allergies Allergy Verified 08/03/16 17:16 Review of Systems ROS Statement: Except As Marked, All Systems Reviewed And Found Negative Constitutional: Negative for: Fever, Chills Cardiovascular: Negative for: Chest Pain Respiratory: Positive for: Cough. Negative for: Hemoptysis Gastrointestinal: Negative for: Nausea, Vomiting Physical Exam - Reviewed Nursing Documentation Reviewed: Yes Vital Signs Reviewed: Yes - Physical Exam Appears: Positive for: Well, Non-toxic, No Acute Distress (occasional cough noted. pt is speaking in full sentences) Head Exam: Positive for: ATRAUMATIC, NORMAL INSPECTION, NORMOCEPHALIC Skin: Positive for: Normal Color, Warm, DRY Eye Exam: Positive for: EOMI, Normal appearance, PERRL ENT: Positive for: Normal ENT Inspection Neck: Positive for: Normal, Painless ROM Cardiovascular/Chest: Positive for: Regular Rate, Rhythm Respiratory: Positive for: CNT, Normal Breath Sounds Gastrointestinal/Abdominal: Positive for: Normal Exam, Bowel Sounds, Soft Back: Positive for: Normal Inspection Extremity: Positive for: Normal ROM Neurologic/Psych: Positive for: Alert, Oriented - ECG O2 Sat by Pulse Oximetry: 97 (RA) Pulse Ox Interpretation: Normal - Progress ED Course And Treament: x-rays which were done today reviewed and show an improved infiltrate. Pt is instructed to continue taking levaquin and to return to the ED if symptoms worsen. Medical Decision Making Medical Decision Making: Initial Impression: Pneumonia. Initial Plan: Scribe Attestation: Documented by Leslie Haile, acting as a scribe for Will Sarkar PA-C. Provider Scribe Attestation: All medical record entries made by the Scribe were at my direction and personally dictated by me. I have reviewed the chart and agree that the record accurately reflects my personal performance of the history, physical exam, medical decision making, and the department course for this patient. I have also personally directed, reviewed, and agree with the discharge instructions and disposition. Disposition - Clinical Impression Clinical Impression: Pneumonia - Patient ED Disposition Is Patient to be Admitted: No - Disposition Referrals: Ramirez Arreguin MD [Staff Provider] - Disposition: Routine/Home Disposition Time: 20:38 Condition: STABLE Prescriptions: Albuterol HFA [Ventolin HFA 90 mcg/actuation (8 g)] 2 puff IH [id number] PRN #60 puff PRN Reason: Wheezing Promethazine DM [Phenergan DM Syrup] 5 - 10 ml PO Q8 PRN #120 ml PRN Reason: Cough Instructions: Pneumonia (ED)
== END 2016-08-07 20:38 | disposition home or self-care (01) ==
LOC: H.ER 18:09
DX: J18.9 Pneumonia, unspecified organism (principal); I10 Essential (primary) hypertension; Z86.69 Personal history of other diseases of the nervous system and sense organs

== ENCOUNTER 2016-08-14 10:58 | Emergency (ER) | payer MEDICAID ==
[2016-08-14 10:59] VITALS: BMI 33.3
[2016-08-14 11:11] VITALS: BP 120/64; PULSE 64; RESP 18; TEMP 98.6; O2SAT 95
--- NOTE | 2016-08-14 11:22 | ED PDOC ---
HPI: General Adult Time Seen by Provider: 08/14/16 11:17 History Per: Patient (Reffered by PMD for f/u CXR. Hospitalized 1 week ago for pneumonia. Feels better. No fever. Still coughing, nonproductive nO SOB) Onset/Duration Of Symptoms: Days (7) Current Symptoms Are (Timing): Still Present Severity: Mild Past Medical History Vital Signs: Last Vital Signs Temp 98.6 F 08/14/16 11:10 Pulse 64 08/14/16 11:10 Resp 18 08/14/16 11:10 BP 120/64 08/14/16 11:10 Pulse Ox 95 08/14/16 11:39 - Medical History PMH: HTN (not on meds) Denies: Diabetes, Hepatitis, HIV, Chronic Kidney Disease, Seizures, Sexually Transmitted Disease - Family History Family History: States: Unknown Family Hx - Immunization History Hx Tetanus Toxoid Vaccination: No Hx Influenza Vaccination: Yes Hx Pneumococcal Vaccination: No - Home Medications Home Medications: Ambulatory Orders Medication Instructions Recorded Albuterol HFA [Ventolin HFA 90 2 puff IH [id number] PRN #60 puff 08/07/16 mcg/actuation (8 g)] Promethazine DM [Phenergan DM 5 - 10 ml PO Q8 PRN #120 ml 08/07/16 Syrup] - Allergies Allergies/Adverse Reactions: Allergies Allergy/AdvReac Type Severity Reaction Status Date / Time No Known Allergies Allergy Verified 08/14/16 11:37 Review of Systems ROS Statement: Except As Marked, All Systems Reviewed And Found Negative Constitutional: Negative for: Fever Cardiovascular: Negative for: Chest Pain Respiratory: Positive for: Cough. Negative for: Shortness of Breath Physical Exam - Reviewed Nursing Documentation Reviewed: Yes Vital Signs Reviewed: Yes - Physical Exam Appears: Positive for: Non-toxic, No Acute Distress Head Exam: Positive for: ATRAUMATIC, NORMAL INSPECTION, NORMOCEPHALIC Skin: Positive for: Normal Color, Warm, DRY Eye Exam: Positive for: EOMI, Normal appearance, PERRL ENT: Positive for: Normal ENT Inspection Neck: Positive for: Normal, Painless ROM Cardiovascular/Chest: Positive for: Regular Rate, Rhythm Respiratory: Positive for: CNT, Normal Breath Sounds Gastrointestinal/Abdominal: Positive for: Normal Exam, Bowel Sounds, Soft Back: Positive for: Normal Inspection Extremity: Positive for: Normal ROM Neurologic/Psych: Positive for: Alert, Oriented - ECG O2 Sat by Pulse Oximetry: 95 Disposition - Clinical Impression Clinical Impression: Cough - Patient ED Disposition Is Patient to be Admitted: No Counseled Patient/Family Regarding: Studies Performed, Diagnosis, Need For Followup - Disposition Disposition: Routine/Home Disposition Time: 12:30 Condition: FAIR Instructions: Pneumonia (ED)
--- NOTE | 2016-08-14 13:41 | RAD ---
HISTORY: cough COMPARISON: 08/07/2016. TECHNIQUE: Chest PA and lateral FINDINGS: LUNGS: Resolution right lower lobe infiltrate. PLEURA: No significant pleural effusion identified. No pneumothorax apparent. CARDIOVASCULAR: Normal. OSSEOUS STRUCTURES: No significant abnormalities. VISUALIZED UPPER ABDOMEN: Normal. OTHER FINDINGS: None. IMPRESSION: No active disease. Resolution right lower lobe infiltrate and mild pulmonary vascular congestion identified previously.
== END 2016-08-14 13:30 | disposition home or self-care (01) ==
LOC: H.ER 10:58
DX: R05 Cough (principal); I10 Essential (primary) hypertension

== ENCOUNTER 2016-08-22 00:09 | Observation (INO) | payer MEDICAID ==
[2016-08-22 00:13] VITALS: TEMP 98.2; O2SAT 99
--- NOTE | 2016-08-22 01:04 | ED PDOC ---
HPI: Psych/Substance Abuse Time Seen by Provider: 08/22/16 00:10 Chief Complaint (Nursing): Alcohol Ingestion Chief Complaint (Provider): alcohol intoxication ED Caveat: Intoxicated History Per: Patient History/Exam Limitations: intoxication Onset/Duration Of Symptoms: Hrs Current Symptoms Are (Timing): Still Present Additional Complaint(s): 41yo male presents to the ED for evaluation of alcohol intoxication. Patient denies any medical complaints. Hx limited due to intoxication. per EMS no trauma. pt was walking. Past Medical History Reviewed: Historical Data, Nursing Documentation, Vital Signs, Unable To Obtain (intoxication ) Vital Signs: Last Vital Signs Temp 98.2 F 08/22/16 00:11 Pulse 89 08/22/16 00:11 Resp 16 08/22/16 00:11 BP 153/86 H 08/22/16 00:11 Pulse Ox 99 08/22/16 00:11 - Medical History PMH: No Chronic Diseases - Surgical History Surgical History: No Surg Hx - Family History Family History: States: No Known Family Hx - Social History Current smoker - smoking cessation education provided: No Alcohol: None Drugs: Denies - Allergies Allergies/Adverse Reactions: Allergies Allergy/AdvReac Type Severity Reaction Status Date / Time No Known Allergies Allergy Verified 08/22/16 00:11 Review of Systems Review Of Systems: ROS cannot be obtained secondary to pt's inabilty to answer questions. (intoxication) Physical Exam - Reviewed Nursing Documentation Reviewed: Yes Vital Signs Reviewed: Yes - Physical Exam Appears: Positive for: Well (appears intoxicated ), No Acute Distress Head Exam: Positive for: ATRAUMATIC, NORMAL INSPECTION, NORMOCEPHALIC Skin: Positive for: Normal Color, Warm, Dry Cardiovascular/Chest: Positive for: Regular Rate, Rhythm. Negative for: Tachycardia Respiratory: Positive for: Normal Breath Sounds. Negative for: Respiratory Distress Gastrointestinal/Abdominal: Positive for: Normal Exam, Bowel Sounds, Soft. Negative for: Tenderness Back: Positive for: Normal Inspection Extremity: Positive for: Normal ROM. Negative for: Deformity, Swelling Neurologic/Psych: Positive for: Alert (but somnolent) - ECG O2 Sat by Pulse Oximetry: 99 Pulse Ox Interpretation: Normal (RA) Medical Decision Making Medical Decision Makin: Impression: alcohol intoxication Plan: thiamine 100mg PO alc serum ED obs 0021: Restraints ordered due to patient being at high risk for self/staff injury and elopement. however taken off after 10 min 0025 pt asleep 0400 pt asleep in no distress 0600: Patient AAOx3 ambulating with steady gait and clear speech and stable for d/c. denies trauma or headache/dizsiness. vitals stable. Advised to f/u w/ his PCP and detox in 2 days and return to ED with any worsening or concerning symptoms. Scribe Attestation: Documented by Samaria Caruso acting as a scribe for Darío Ware MD. Provider Scribe Attestation: All medical record entries made by the Scribe were at my direction and personally dictated by me. I have reviewed the chart and agree that the record accurately reflects my personal performance of the history, physical exam, medical decision making, and the department course for this patient. I have also personally directed, reviewed, and agree with the discharge instructions and disposition. ED OBSERVATION Date of observation admission: 08/22/16 Time of observation admission: 01:06 - Observation admission statement Patient is being placed in observation because:: alcohol intoxication - Goals of Observation Goals of observation are:: pending sobriety Disposition - Clinical Impression Clinical Impression: Alcohol abuse - Patient ED Disposition Is Patient to be Admitted: No Counseled Patient/Family Regarding: Studies Performed, Diagnosis, Need For Followup - Disposition Disposition: Routine/Home Disposition Time: 06:00 Condition: IMPROVED
[2016-08-22 05:34] VITALS: BP 136/82; PULSE 83; RESP 17
== END 2016-08-22 05:24 | disposition home or self-care (01) ==
LOC: EDBD 00:09 → H.ER 00:09 → H.EROBSV 01:06 → MERGE 01:06
PROVIDERS: ADMIT Emergency Medicine; ATTEND Emergency Medicine
DX: F10.129 Alcohol abuse with intoxication, unspecified (principal); Y90.8 Blood alcohol level of 240 mg/100 ml or more; Z78.1 Physical restraint status

== ENCOUNTER 2016-08-27 08:50 | Observation (INO) | payer MEDICAID ==
[2016-08-27 08:50] VITALS: BMI 33.3
[2016-08-27 08:53] VITALS: BP 134/62; PULSE 96; RESP 18; TEMP 97.3; O2SAT 100
--- NOTE | 2016-08-27 09:19 | ED PDOC ---
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 Pt. was on someone else's property so police came and sent to the ED. Pt. was sitting on ground when found. Pt. denies any chest pain, head injury, fall, neck pain, abd pain, vomit, diarrhea, weakness. No drugs. Not suicidal or homicidal. States he does not take any meds even though he should for seizures. Past Medical History Reviewed: Nursing Documentation, Vital Signs Vital Signs: Last Vital Signs Temp 97.3 F L 08/27/16 08:51 Pulse 96 H 08/27/16 08:51 Resp 18 08/27/16 08:51 BP 134/62 08/27/16 08:51 Pulse Ox 100 08/27/16 08:51 - Medical History PMH: HTN (not on meds), Seizures Denies: Diabetes, Hepatitis, HIV, Chronic Kidney Disease, Sexually Transmitted Disease - Family History Family History: States: Unknown Family Hx - Social History Current smoker - smoking cessation education provided: No Alcohol: > 2 Drinks/Day Drugs: Denies - Immunization History Hx Tetanus Toxoid Vaccination: No Hx Influenza Vaccination: Yes Hx Pneumococcal Vaccination: No - Home Medications Home Medications: Ambulatory Orders Medication Instructions Recorded Albuterol HFA [Ventolin HFA 90 2 puff IH [id number] PRN #60 puff 08/07/16 mcg/actuation (8 g)] Promethazine DM [Phenergan DM 5 - 10 ml PO Q8 PRN #120 ml 08/07/16 Syrup] - Allergies Allergies/Adverse Reactions: Allergies Allergy/AdvReac Type Severity Reaction Status Date / Time No Known Allergies Allergy Verified 08/14/16 11:37 Review of Systems ROS Statement: Except As Marked, All Systems Reviewed And Found Negative Physical Exam - Reviewed Nursing Documentation Reviewed: Yes Vital Signs Reviewed: Yes - Physical Exam Appears: Positive for: Non-toxic, No Acute Distress Skin: Positive for: Normal Color, Warm, DRY Eye Exam: Positive for: EOMI, PERRL, Conjunctival injection (b/l) ENT: Positive for: Normal ENT Inspection. Negative for: Pharyngeal Erythema, Tonsillar Exudate Neck: Positive for: Normal, Painless ROM Cardiovascular/Chest: Positive for: Regular Rate, Rhythm. Negative for: Edema Respiratory: Positive for: CNT, Normal Breath Sounds Gastrointestinal/Abdominal: Positive for: Normal Exam, Bowel Sounds, Soft. Negative for: Tenderness Back: Positive for: Normal Inspection. Negative for: L CVA Tenderness, R CVA Tenderness Extremity: Positive for: Normal ROM. 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 Negative for: Motor/Sensory Deficits - ECG O2 Sat by Pulse Oximetry: 100 Pulse Ox Interpretation: Normal - Progress ED Course And Treament: 1016: Stable. AAOx3. Tolerated PO. Ambulating with no issues. ED OBSERVATION Date of observation admission: 08/27/16 Time of observation admission: 09:18 - Observation admission statement Patient is being placed in observation because:: Alcohol abuse - Goals of Observation Goals of observation are:: monitor sobriety and capacity of decision making. - Progress Note Progress Note: 08/27/16 09:49 continue monitoring for sobriety. Disposition - Clinical Impression Clinical Impression: Alcohol intoxication - Patient ED Disposition Is Patient to be Admitted: No Counseled Patient/Family Regarding: Studies Performed, Diagnosis, Need For Followup - Disposition Disposition: Routine/Home Disposition Time: 10:17 Condition: STABLE - POA Present On Arrival: None
== END 2016-08-27 10:20 | disposition home or self-care (01) ==
LOC: H.ER 08:50 → H.EROBSV 09:18
PROVIDERS: ADMIT Emergency Medicine; ATTEND Emergency Medicine
DX: F10.129 Alcohol abuse with intoxication, unspecified (principal); I10 Essential (primary) hypertension; G40.909 Epilepsy, unspecified, not intractable, without status epilepticus